=== PATIENT | male | born 1970 | race Caucasian/White ===

== ENCOUNTER 2017-10-12 12:57 | Emergency (ER) | payer SELFPAY ==
[~2017-10-12] VITALS: Ht 182.9 cm; Wt 85.6 kg
[~2017-10-12 12:57] MED LIST: CHLO.12%30 SSP; GABA300C3 PO; NAPR-576 PO; PAXI20TA26 PO; PENI250T59 PO; RISP.25 PO
[2017-10-12 13:03] VITALS: BP 157/85; PULSE 83; RESP 16; TEMP 97.9; O2SAT 96
[2017-10-12] MEDS ORDERED: LORA-650 PO (13:18)
--- NOTE | 2017-10-12 13:25 | PD ---
HPI Chief Complaint: Oral / Dental Pain or Problem Time Seen by Provider: 13:07 Travel History International Travel<30 days: No Contact w/Intl Traveler<30days: No Traveled to known affect area: No History of Present Illness HPI 47-year-old male resents emergency Department with worsening right upper jaw pain and swelling over the past week. Patient has terrible dental health, and admits to being an alcoholic requesting help with detox. Patient states he's been to detox 5 times in the past. Patient is concerned as the swelling and pain is increasing in the right cheek, although he denies change in his vision, or increased pain with motion of the eye. He feels feverish. He has no local dentist. He has no known drug allergies PFSH Past Medical History Arthritis: No Blood Disorders: No Bipolar Disorder: Yes Anxiety: Yes Depression: Yes Cancer: No Cardiovascular Problems: Yes (STATES TAKES MED. FOR UNSPECIFIED "HEART PROBLEM ") Cerebrovascular Accident: No Diminished Hearing: No Endocrine: No GERD: Yes Genitourinary: No Headaches: Yes Immune Disorder: No Musculoskeletal: Yes Neurologic: Yes Psychiatric: Yes Immunizations Current: Yes Migraines: No Schizophrenia: Yes Seizures: Yes (FROM ALCOHOL WITHDRAW) Tetanus Vaccination: > 5 Years Influenza Vaccination: No Past Surgical History AICD: No Arteriovenous Shunt: No Insulin Pump: No Joint Replacement: No Pacemaker: No Other Surgery: No Social History Alcohol Use: Yes (PT is intoxicated, STATES DRINKS CASE OF BEER DAILY) Tobacco Use: Yes (2 PPD) Substance Use: No Allergies-Medications (Allergen,Severity, Reaction): Coded Allergies: No Known Allergies (Verified Adverse Reaction, Unknown, 10/12/17) Reported Meds & Prescriptions Reported Meds & Active Scripts Active Penicillin Vk (Penicillin V Potassium) 250 Mg Tab 500 Mg PO Q12HR 10 Days Review of Systems Except as stated in HPI: all other systems reviewed are Neg General / Constitutional: Positive: Fever, Chills (subjective) Eyes: No: Diploplia, Blurred Vision, Photophobia, Pain, Blind Spots, Visual changes, Blindness HENT: Positive: Dental Difficulties, Other (right cheek swelling.), No: Headaches, Vertigo, Lightheadedness, Sore Throat, Rhinitis, Rhinorrhea, Congestion, Nosebleed, Neck Stiffness, Neck Pain, Masses, Gingival Bleeding, Ear Discharge, Earache Cardiovascular: No: Chest Pain or Discomfort Respiratory: No: Shortness of Breath Gastrointestinal: No: Abdominal Pain Genitourinary: No: Dysuria Musculoskeletal: No: Pain Skin: No Rash Neurologic: No: Weakness Psychiatric: No: Depression Endocrine: No: Polydipsia Hematologic/Lymphatic: No: Easy Bruising Physical Exam Narrative GENERAL: Patient appears in mild to moderate distress. SKIN: Warm and dry. Normal color. Normal turgor. No erythema. HEAD: Atraumatic. Normocephalic. Patient has swelling to the right cheek and upper jaw consistent with dental abscess. EYES: Pupils equal and round. No scleral icterus. No injection or drainage. Ocular motions are full without increased pain. ENT: No nasal bleeding or discharge. Mucous membranes pink and moist. Patient has very poor dental health with multiple teeth broken at the gumline. He has only the right upper second premolar in place which causes tenderness with palpation. Pharynx is clear. Airway is patent. TMs are clear bilaterally. NECK: Trachea midline. Supple nontender without lymphadenopathy. CARDIOVASCULAR: Regular rate and rhythm. RESPIRATORY: No accessory muscle use. Clear to auscultation. Breath sounds equal bilaterally. GASTROINTESTINAL: Abdomen soft, non-tender, nondistended. Hepatic and splenic margins not palpable. MUSCULOSKELETAL: Extremities without clubbing, cyanosis, or edema. No obvious deformities. NEUROLOGICAL: Awake and alert. No obvious cranial nerve deficits. Motor grossly within normal limits. Five out of 5 muscle strength in the arms and legs. Normal speech. PSYCHIATRIC: Appropriate mood and affect; insight and judgment normal. Data Data Last Documented VS Vital Signs Date Time Temp Pulse Resp B/P (MAP) Pulse Ox O2 Delivery O2 Flow Rate FiO2 10/12/17 13:03 97.9 83 16 157/85 (109) 96 Orders Orders Clindamycin Inj (Cleocin Inj) (10/12/17 13:30) Ketorolac Inj (Toradol Inj) (10/12/17 13:30) [facility] Medical Decision Making Medical Screen Exam Complete: Yes Emergency Medical Condition: Yes Medical Record Reviewed: Yes Differential Diagnosis Right upper dental abscess. Dental Pain. EtOH dependence. Narrative Course Patient appears medically stable at this time. CT of the facial areas not felt warranted at this time. Patient is given 600 mg clindamycin IM as well as 60 mg Toradol IM. Patient will be continued on Cleocin 150 mg 2 tabs every 6 hours for 10 days. Patient is given Librium 25 mg one every 8 hours #20. Patient is referred to [facility] for detox. Patient take Tylenol and ibuprofen for pain as needed. Patient should follow with a dentist as soon as possible. The patient may return the emergency Department with worsening symptoms as needed. Diagnosis Primary Impression: Dental abscess Additional Impression: EtOH dependence Qualified Codes: F10.20 - Alcohol dependence, uncomplicated Referrals: [facility] Patient Instructions: Abuse of Alcohol (ED), Dental Abscess (ED), General Instructions Additional Instructions: CT of the facial areas not felt warranted at this time. Patient is given 600 mg clindamycin IM as well as 60 mg Toradol IM. Patient will be continued on Cleocin 150 mg 2 tabs every 6 hours for 10 days. Patient is given Librium 25 mg one every 8 hours #20. Patient is referred to [facility] for detox. Patient take Tylenol and ibuprofen for pain as needed. Patient should follow with a dentist as soon as possible. The patient may return the emergency Department with worsening symptoms as needed. Med/Other Pt SpecificInfo: Prescription(s) given Disposition: 01 DISCHARGE HOME Condition: Stable Jayjay Dupree Oct 12, 2017 13:25
[2017-10-12] MEDS ORDERED: CLIN150 PO (13:29)
[2017-10-12] MEDS ORDERED: CHLO25CA9 PO (13:29)
[2017-10-12] MEDS ORDERED: KETOROLAC TROMETHAMINE 60 MG/2 ML (IM) VIAL IM ONE (13:30)
[2017-10-12] MEDS ORDERED: CLINDAMYCIN PHOS 600 MG/4 ML VIAL IM ONE (13:30)
== END 2017-10-12 14:11 | disposition home or self-care (01) ==
LOC: PHEFT 12:57
DX: K04.7 Periapical abscess without sinus (principal); F17.200 Nicotine dependence, unspecified, uncomplicated; F10.20 Alcohol dependence, uncomplicated
CPT/HCPCS: 96372; 99284; J1885

== ENCOUNTER 2017-10-18 20:58 | Emergency (ER) | payer OTHER ==
[~2017-10-18 20:58] MED LIST changes: -CHLO.12%30 SSP; +CHLO25CA9 PO; +CLIN150 PO; -GABA300C3 PO; +LORA-650 PO; -NAPR-576 PO; -PAXI20TA26 PO; -PENI250T59 PO; -RISP.25 PO
[2017-10-18 21:09] VITALS: BP 137/75; PULSE 80; RESP 20; TEMP 98.7; O2SAT 96
--- NOTE | 2017-10-18 21:21 | PD ---
HPI Chief Complaint: Psychiatric Symptoms Time Seen by Provider: 21:16 Travel History International Travel<30 days: No Contact w/Intl Traveler<30days: No Traveled to known affect area: No History of Present Illness HPI This is a 47-year-old male who presents under [place] act initiated by the Police Department. The patient has a long-standing history of alcoholism. He has been binge drinking for the past 3 days. He has been drinking numerous beers every day. 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 He has tried rehabilitation several times in the past with no success. He denies any suicidal or homicidal ideation, illicit drug use. He has no other complaints at this time. PFSH Past Medical History Arthritis: No Blood Disorders: No Bipolar Disorder: Yes Anxiety: Yes Depression: Yes Cancer: No Cerebrovascular Accident: No Diminished Hearing: No Endocrine: No GERD: Yes Genitourinary: No Headaches: Yes Immune Disorder: No Musculoskeletal: Yes Neurologic: Yes Psychiatric: Yes Immunizations Current: Yes Migraines: No Schizophrenia: Yes Seizures: Yes (FROM ALCOHOL WITHDRAW) Tetanus Vaccination: Unknown Past Surgical History Surgical History: Unable to Obtain AICD: No Arteriovenous Shunt: No Insulin Pump: No Joint Replacement: No Pacemaker: No Other Surgery: No Social History Alcohol Use: Yes (PT is intoxicated, STATES DRINKS CASE OF BEER DAILY) Tobacco Use: Yes (2 PPD) Substance Use: No Allergies-Medications (Allergen,Severity, Reaction): Coded Allergies: No Known Allergies (Verified Adverse Reaction, Unknown, 10/12/17) Reported Meds & Prescriptions Reported Meds & Active Scripts Active Chlordiazepoxide HCl 25 Mg Capsule 1 Cap PO Q8HR Cleocin (Clindamycin HCl) 150 Mg Cap 300 Mg PO Q6H 10 Days Reported Allergy Relief (Loratadine) 10 Mg Tab Unknown Dose PO BID Review of Systems Except as stated in HPI: all other systems reviewed are Neg Physical Exam Narrative GENERAL: Well-developed well-nourished male in no acute distress SKIN: Warm and dry. HEAD: Atraumatic. Normocephalic. EYES: Pupils equal and round. No scleral icterus. No injection or drainage. ENT: No nasal bleeding or discharge. Mucous membranes pink and moist. NECK: Trachea midline. No JVD. CARDIOVASCULAR: Regular rate and rhythm. No murmur appreciated. RESPIRATORY: No accessory muscle use. Clear to auscultation. Breath sounds equal bilaterally. GASTROINTESTINAL: Abdomen soft, non-tender, nondistended. Hepatic and splenic margins not palpable. MUSCULOSKELETAL: No obvious deformities. No clubbing. No cyanosis. No edema. NEUROLOGICAL: Awake and alert. No obvious cranial nerve deficits. Motor grossly within normal limits. Slurred speech. PSYCHIATRIC: Appropriate mood and affect; insight and judgment normal. Data Data Last Documented VS Vital Signs Date Time Temp Pulse Resp B/P (MAP) Pulse Ox O2 Delivery O2 Flow Rate FiO2 10/18/17 21:09 98.7 80 20 137/75 (95) 96 MDM Medical Decision Making Medical Screen Exam Complete: Yes Emergency Medical Condition: Yes Medical Record Reviewed: Yes Differential Diagnosis Alcoholism, alcohol intoxication, substance induced mood disorder Narrative Course 47-year-old male presents under [facility] act for evaluation of alcohol intoxication. History of alcoholism. Discussed with the nurse in [facility] called [facility] however unfortunately they do not currently have any detoxification beds available. The patient will remain here until he is clinically sober or able to obtain a sober ride home and then he'll be discharged. Diagnosis Primary Impression: Acute alcohol intoxication [facility] Additional Instructions: Consider attending a detoxification center such as [facility]. Med/Other Pt SpecificInfo: No Change to Meds Disposition: 01 DISCHARGE HOME Condition: Stable Ge Chambers Oct 18, 2017 21:21
== END 2017-10-19 06:49 | disposition home or self-care (01) ==
LOC: NEPD 20:58
DX: F10.129 Alcohol abuse with intoxication, unspecified (principal); F31.9 Bipolar disorder, unspecified; F41.9 Anxiety disorder, unspecified; F20.9 Schizophrenia, unspecified; K21.9 Gastro-esophageal reflux disease without esophagitis; F17.200 Nicotine dependence, unspecified, uncomplicated; Z79.899 Other long term (current) drug therapy
CPT/HCPCS: 99283

== ENCOUNTER 2017-10-21 16:14 | Emergency (ER) | payer OTHER ==
[~2017-10-21] VITALS: Ht 185.4 cm; Wt 85.0 kg
[2017-10-21 16:39] VITALS: BP 123/76; PULSE 78; RESP 16; TEMP 97.8; O2SAT 95
[2017-10-21 17:17] VITALS: BP 121/74; PULSE 72; RESP 14; O2SAT 97
[2017-10-21 17:43] LABS: AUTOMATED NEUTROPHIL # 4.4 TH/MM3 (1.8-7.7); BASOPHIL # 0.1 TH/MM3 (0-0.2); BASOPHIL % 1.3 % (0.0-2.0); EOSINOPHIL # 0.3 TH/MM3 (0-0.4); EOSINOPHIL % 3.4 % (0.0-4.0); HEMATOCRIT 52.6 % (39.0-51.0); HEMOGLOBIN 18.3 GM/DL (13.0-17.0); LYMPH % 32.8 % (9.0-44.0); LYMPHOCYTE # 2.6 TH/MM3 (1.0-4.8); MEAN CELL VOLUME 99.1 FL (80.0-100.0); MEAN CORPUSCULAR HEMOGLOBIN 34.5 PG (27.0-34.0); MEAN CORPUSCULAR HGB CONC 34.8 % (32.0-36.0); MONO % 8.1 % (0.0-8.0); MONOCYTE # 0.7 TH/MM3 (0-0.9); NEUT % 54.4 % (16.0-70.0); PLATELET COUNT 151 TH/MM3 (150-450); RED BLOOD COUNT 5.31 MIL/MM3 (4.50-5.90); RED CELL DISTRIBUTION WIDTH 14.6 % (11.6-17.2)
--- NOTE | 2017-10-21 17:55 | PD ---
HPI Chief Complaint: Psychiatric Symptoms Time Seen by Provider: 16:58 Travel History International Travel<30 days: No Contact w/Intl Traveler<30days: No Traveled to known affect area: No History of Present Illness HPI 47yo M with PMH of alcohol abuse here under [place] Act for suicidal ideations. Pt admits to drinking a lot. Denies any fall, chest pain, sob, n/v, abdominal pain, focal weakness or numbness. Following commands. Mildly intoxicated. No signs of trauma. PFSH Past Medical History Arthritis: No Blood Disorders: No Bipolar Disorder: Yes Anxiety: Yes Depression: Yes Cancer: No Cerebrovascular Accident: No Diminished Hearing: No Endocrine: No GERD: Yes Genitourinary: No Headaches: Yes Immune Disorder: No Musculoskeletal: Yes Neurologic: Yes Psychiatric: Yes (ALCOHOLISM) Immunizations Current: Yes Migraines: No Schizophrenia: Yes Seizures: Yes (FROM ALCOHOL WITHDRAW) Past Surgical History Surgical History: No Previous Surgery AICD: No Arteriovenous Shunt: No Insulin Pump: No Joint Replacement: No Pacemaker: No Other Surgery: No Social History Alcohol Use: Yes (PT is intoxicated, STATES DRINKS CASE OF BEER DAILY) Tobacco Use: Yes (2 PPD) Substance Use: No Allergies-Medications (Allergen,Severity, Reaction): Coded Allergies: No Known Allergies (Verified Adverse Reaction, Unknown, 10/21/17) Reported Meds & Prescriptions Reported Meds & Active Scripts Active Chlordiazepoxide HCl 25 Mg Capsule 1 Cap PO Q8HR Cleocin (Clindamycin HCl) 150 Mg Cap 300 Mg PO Q6H 10 Days Reported Allergy Relief (Loratadine) 10 Mg Tab Unknown Dose PO BID Review of Systems Except as stated in HPI: all other systems reviewed are Neg Physical Exam Narrative GENERAL: 47yo M intoxicated. SKIN: Focused skin assessment warm/dry. HEAD: Atraumatic. Normocephalic. EYES: Pupils equal and round. No scleral icterus. No injection or drainage. ENT: No nasal bleeding or discharge. Mucous membranes pink and moist. NECK: Trachea midline. No JVD. CARDIOVASCULAR: Regular rate and rhythm. No murmur appreciated. RESPIRATORY: No accessory muscle use. Clear to auscultation. Breath sounds equal bilaterally. GASTROINTESTINAL: Abdomen soft, non-tender, nondistended. MUSCULOSKELETAL: No obvious deformities. No clubbing. No cyanosis. No edema. NEUROLOGICAL: Awake and alert. No obvious cranial nerve deficits. Motor grossly within normal limits. Normal speech. PSYCHIATRIC: Appropriate mood and affect; insight and judgment normal. Data Data Last Documented VS Vital Signs Date Time Temp Pulse Resp B/P (MAP) Pulse Ox O2 Delivery O2 Flow Rate FiO2 10/22/17 06:40 110 16 131/78 (95) 95 10/21/17 19:56 Room Air 10/21/17 16:39 97.8 Orders Orders Complete Blood Count With Diff (10/21/17 16:58) Comprehensive Metabolic Panel (10/21/17 16:58) Psych Screen (10/21/17 16:58) Drug Screen, Random Urine (10/21/17 16:58) Alcohol (Ethanol) (10/21/17 16:58) Salicylates (Aspirin) (10/21/17 16:58) Tylenol (Acetaminophen) (10/21/17 16:58) Thiamine Inj (Thiamine Inj) (10/21/17 19:45) Ed Discharge Order (10/21/17 20:44) Labs Laboratory Tests Test 10/21/17 17:10 10/21/17 17:35 10/21/17 19:00 White Blood Count 8.0 TH/MM3 Red Blood Count 5.31 MIL/MM3 Hemoglobin 18.3 GM/DL Hematocrit 52.6 % Mean Corpuscular Volume 99.1 FL Mean Corpuscular Hemoglobin 34.5 PG Mean Corpuscular Hemoglobin Concent 34.8 % Red Cell Distribution Width 14.6 % Platelet Count 151 TH/MM3 Mean Platelet Volume 9.0 FL Neutrophils (%) (Auto) 54.4 % Lymphocytes (%) (Auto) 32.8 % Monocytes (%) (Auto) 8.1 % Eosinophils (%) (Auto) 3.4 % Basophils (%) (Auto) 1.3 % Neutrophils # (Auto) 4.4 TH/MM3 Lymphocytes # (Auto) 2.6 TH/MM3 Monocytes # (Auto) 0.7 TH/MM3 Eosinophils # (Auto) 0.3 TH/MM3 Basophils # (Auto) 0.1 TH/MM3 CBC Comment AUTO DIFF Differential Comment AUTO DIFF CONFIRMED Salicylates Level 3.8 MG/DL Urine Opiates Screen NEG Urine Barbiturates Screen NEG Urine Amphetamines Screen NEG Urine Benzodiazepines Screen POS Urine Cocaine Screen NEG Urine Cannabinoids Screen NEG Blood Urea Nitrogen 3 MG/DL Creatinine 0.79 MG/DL Random Glucose 71 MG/DL Total Protein 8.4 GM/DL Albumin 3.2 GM/DL Calcium Level 8.9 MG/DL Alkaline Phosphatase 73 U/L Aspartate Amino Transf (AST/SGOT) 75 U/L Alanine Aminotransferase (ALT/SGPT) 82 U/L Total Bilirubin 0.6 MG/DL Sodium Level 132 MEQ/L Potassium Level 4.3 MEQ/L Chloride Level 99 MEQ/L Carbon Dioxide Level 24.1 MEQ/L Anion Gap 9 MEQ/L Estimat Glomerular Filtration Rate 104 ML/MIN Acetaminophen Level LESS THAN 2.0 MCG/ML Ethyl Alcohol Level 291 MG/DL MDM Medical Decision Making Medical Screen Exam Complete: Yes Emergency Medical Condition: Yes Differential Diagnosis Alcohol intoxication vs. depression Narrative Course 47yo M here under [place] Act for stating he wants to kill himself but admits to drinking daily. Labs still pending, sign out to next team to follow up. Diagnosis Primary Impression: Alcohol intoxication Qualified Codes: F10.920 - Alcohol use, unspecified with intoxication, uncomplicated Bev Parsons DO Oct 21, 2017 17:55
[2017-10-21 18:42] LABS: ALKALINE PHOSPHATASE 73 U/L (45-117); ALT (GPT) 82 U/L (12-78); TOTAL BILIRUBIN ADULT 0.6 MG/DL (0.2-1.0); TOTAL PROTEIN 8.4 GM/DL (6.4-8.2)
[2017-10-21] MEDS ORDERED: THIAMINE INJ 100 MG in SODIUM CHLORIDE 0.9% INJ 100 ML IV ONE (19:45)
[2017-10-21 19:56] VITALS: BP 107/63; PULSE 82; RESP 18; O2SAT 94
[2017-10-21 20:11] LABS: ALBUMIN 3.2 GM/DL (3.4-5.0); AST (GOT) 75 U/L (15-37); BICARBONATE 24.1 MEQ/L (21.0-32.0); BLOOD UREA NITROGEN 3 MG/DL (7-18); CALCIUM 8.9 MG/DL (8.5-10.1); CHLORIDE 99 MEQ/L (98-107); CREATININE 0.79 MG/DL (0.60-1.30); GLOMERULAR FILTRATION RATE 104 ML/MIN (>89); GLUCOSE,RANDOM 71 MG/DL (74-106); SODIUM (NA) 132 MEQ/L (136-145)
[2017-10-21 20:12] LABS: ACETAMINOPHEN LESS THAN 2.0 MCG/ML (10.0-30.0)
--- NOTE | 2017-10-21 20:50 | PD ---
Data Data Last Documented VS Vital Signs Date Time Temp Pulse Resp B/P (MAP) Pulse Ox O2 Delivery O2 Flow Rate FiO2 10/21/17 19:56 82 18 107/63 (78) 94 Room Air 10/21/17 16:39 97.8 Orders Orders Complete Blood Count With Diff (10/21/17 16:58) Comprehensive Metabolic Panel (10/21/17 16:58) Psych Screen (10/21/17 16:58) Drug Screen, Random Urine (10/21/17 16:58) Alcohol (Ethanol) (10/21/17 16:58) Salicylates (Aspirin) (10/21/17 16:58) Tylenol (Acetaminophen) (10/21/17 16:58) Thiamine Inj (Thiamine Inj) (10/21/17 19:45) Ed Discharge Order (10/21/17 20:44) Labs Laboratory Tests Test 10/21/17 17:10 10/21/17 17:35 10/21/17 19:00 White Blood Count 8.0 TH/MM3 Red Blood Count 5.31 MIL/MM3 Hemoglobin 18.3 GM/DL Hematocrit 52.6 % Mean Corpuscular Volume 99.1 FL Mean Corpuscular Hemoglobin 34.5 PG Mean Corpuscular Hemoglobin Concent 34.8 % Red Cell Distribution Width 14.6 % Platelet Count 151 TH/MM3 Mean Platelet Volume 9.0 FL Neutrophils (%) (Auto) 54.4 % Lymphocytes (%) (Auto) 32.8 % Monocytes (%) (Auto) 8.1 % Eosinophils (%) (Auto) 3.4 % Basophils (%) (Auto) 1.3 % Neutrophils # (Auto) 4.4 TH/MM3 Lymphocytes # (Auto) 2.6 TH/MM3 Monocytes # (Auto) 0.7 TH/MM3 Eosinophils # (Auto) 0.3 TH/MM3 Basophils # (Auto) 0.1 TH/MM3 CBC Comment AUTO DIFF Differential Comment AUTO DIFF CONFIRMED Salicylates Level 3.8 MG/DL Urine Opiates Screen NEG Urine Barbiturates Screen NEG Urine Amphetamines Screen NEG Urine Benzodiazepines Screen POS Urine Cocaine Screen NEG Urine Cannabinoids Screen NEG Blood Urea Nitrogen 3 MG/DL Creatinine 0.79 MG/DL Random Glucose 71 MG/DL Total Protein 8.4 GM/DL Albumin 3.2 GM/DL Calcium Level 8.9 MG/DL Alkaline Phosphatase 73 U/L Aspartate Amino Transf (AST/SGOT) 75 U/L Alanine Aminotransferase (ALT/SGPT) 82 U/L Total Bilirubin 0.6 MG/DL Sodium Level 132 MEQ/L Potassium Level 4.3 MEQ/L Chloride Level 99 MEQ/L Carbon Dioxide Level 24.1 MEQ/L Anion Gap 9 MEQ/L Estimat Glomerular Filtration Rate 104 ML/MIN Acetaminophen Level LESS THAN 2.0 MCG/ML Ethyl Alcohol Level 291 MG/DL [facility] Medical Record Reviewed: Yes Supervised Visit with NICOLE: No Narrative Course The patient arrives as a [place] act. He drank alcohol today. He reported to the police suicidal ideation out to me denies it. 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 He denies prior SA. CBC & BMP Diagram 10/21/17 17:10 10/21/17 19:00 Total Protein 8.4 H, Albumin 3.2 L, Calcium Level 8.9, Alkaline Phosphatase 73, Aspartate Amino Transf (AST/SGOT) 75 H, Alanine Aminotransferase (ALT/SGPT) 82 H , Total Bilirubin 0.6 ETOH 291 UTOX + for Benzos No prior SA. No access to firearms. + Social support network intact. Pt considered very low risk for self-harm. Pt's BA lifted by me. Diagnosis Primary Impression: Alcohol intoxication Qualified Codes: F10.920 - Alcohol use, unspecified with intoxication, uncomplicated Additional Impression: Passive suicidal ideations Referrals: [facility] 2 days Med/Other Pt SpecificInfo: No Change to Meds Disposition: 01 DISCHARGE HOME Condition: Stable Bran Siu MD Oct 21, 2017 20:50
[2017-10-22 06:40] VITALS: BP 131/78
== END 2017-10-22 06:39 | disposition home or self-care (01) ==
LOC: NEDAMB 16:14 → NEPE 10-22 06:39
DX: F10.129 Alcohol abuse with intoxication, unspecified (principal); F17.200 Nicotine dependence, unspecified, uncomplicated; F20.9 Schizophrenia, unspecified; F31.9 Bipolar disorder, unspecified; R45.851 Suicidal ideations; Y90.8 Blood alcohol level of 240 mg/100 ml or more; Z79.899 Other long term (current) drug therapy
CPT/HCPCS: 80053; 80307; 85025; 96365; 99284; J3411

== ENCOUNTER 2018-01-04 22:41 | Inpatient (IN) | payer OTHER ==
[~2018-01-04] VITALS: Ht 182.9 cm; Wt 75.0 kg
[2018-01-04 23:11] VITALS: BP 116/76; PULSE 77; RESP 15; TEMP 98; O2SAT 96
[2018-01-04] MEDS ORDERED: RANI150C PO (23:11)
[2018-01-04 23:39] LABS: BASOPHIL # 0.1 TH/MM3 (0-0.2); EOSINOPHIL # 0.2 TH/MM3 (0-0.4); EOSINOPHIL % 2.8 % (0.0-4.0); HEMATOCRIT 47.9 % (39.0-51.0); LYMPH % 44.2 % (9.0-44.0); LYMPHOCYTE # 3.3 TH/MM3 (1.0-4.8); MEAN CELL VOLUME 97.7 FL (80.0-100.0); MEAN CORPUSCULAR HEMOGLOBIN 34.8 PG (27.0-34.0); MEAN CORPUSCULAR HGB CONC 35.6 % (32.0-36.0); MEAN PLATELET VOLUME 8.5 FL (7.0-11.0); MONO % 11.1 % (0.0-8.0); MONOCYTE # 0.8 TH/MM3 (0-0.9); NEUT % 40.9 % (16.0-70.0); PLATELET COUNT 154 TH/MM3 (150-450); RED CELL DISTRIBUTION WIDTH 14.1 % (11.6-17.2); WHITE BLOOD COUNT 7.4 TH/MM3 (4.0-11.0)
[2018-01-04 23:47] LABS: BILIRUBIN, URINE NEG (NEG); BLOOD, URINE NEG (NEG); GLUCOSE,URINE NEG (NEG); KETONE, URINE NEG (NEG); NITRITE,URINE NEG (NEG); PH, URINE 5.5 (5.0-8.5); URINE COLOR LIGHT-YELLOW (YELLW/STRAW); URINE LEUKOCYTE ESTERASE NEG (NEG)
[2018-01-04 23:48] LABS: PROTHROMBIN TIME - PATIENT 10.3 SEC (9.8-11.6)
[2018-01-04 23:56] LABS: ALBUMIN 3.2 GM/DL (3.4-5.0); AST (GOT) 58 U/L (15-37); BICARBONATE 24.6 MEQ/L (21.0-32.0); BLOOD UREA NITROGEN 2 MG/DL (7-18); CALCIUM 8.7 MG/DL (8.5-10.1); CHLORIDE 101 MEQ/L (98-107); CREATININE 0.77 MG/DL (0.60-1.30); GLOMERULAR FILTRATION RATE 107 ML/MIN (>89); GLUCOSE,RANDOM 92 MG/DL (74-106); SODIUM (NA) 138 MEQ/L (136-145)
[2018-01-04 23:57] LABS: ALT (GPT) 66 U/L (12-78)
[2018-01-05] VITALS (10 sets, daily range): BP systolic 114–162; BP diastolic 60–82; PULSE 71–92; RESP 16–20; TEMP 97.6–98.8; O2SAT 90–98
[2018-01-05 00:02] LABS: ALKALINE PHOSPHATASE 75 U/L (45-117); TOTAL BILIRUBIN ADULT 0.3 MG/DL (0.2-1.0); TOTAL PROTEIN 7.6 GM/DL (6.4-8.2)
[2018-01-05] MEDS ORDERED: SODIUM CHLOR 0.9% 1000 ML INJ 1,000 ML IV ONE (00:30)
[2018-01-05] MEDS ORDERED: PANTOPRAZOLE SODIUM 40 MG VIAL IV PUSH ONE (00:30)
--- NOTE | 2018-01-05 00:46 | PD ---
HPI Chief Complaint: Alcohol/Drug Intoxication Time Seen by Provider: 00:17 Travel History International Travel<30 days: No Contact w/Intl Traveler<30days: No Traveled to known affect area: No History of Present Illness HPI 47-year-old male with history of alcoholism/alcohol abuse here complaining of vomiting and diarrhea that consists of bright red blood. Symptoms started today. He admits to drinking beer throughout the day today. He denies illicit drug use. He is complaining of some epigastric abdominal discomfort. No fevers or chills. He is not on any antiplatelets or anticoagulants. He denies inserting foreign bodies into his rectum. He denies rectal pain. PFSH Past Medical History Arthritis: No Blood Disorders: No Bipolar Disorder: Yes Anxiety: Yes Depression: Yes Cancer: No Cerebrovascular Accident: No Diminished Hearing: No Endocrine: No GERD: Yes Genitourinary: No Headaches: Yes Immune Disorder: No Musculoskeletal: Yes Neurologic: Yes Psychiatric: Yes (ALCOHOLISM) Immunizations Current: Yes Migraines: No Schizophrenia: Yes Seizures: Yes ?: Not Past Surgical History Surgical History: No Previous Surgery AICD: No Arteriovenous Shunt: No Insulin Pump: No Joint Replacement: No Pacemaker: No Other Surgery: No Social History Alcohol Use: Yes (PT is intoxicated, STATES DRINKS BEER DAILY) Tobacco Use: Yes (2 PPD) Substance Use: No Allergies-Medications (Allergen,Severity, Reaction): Coded Allergies: No Known Allergies (Verified Adverse Reaction, Unknown, 01/04/18) Reported Meds & Prescriptions Reported Meds & Active Scripts Active Reported Ranitidine (Ranitidine HCl) 150 Mg Cap 150 Mg PO DAILY Review of Systems Except as stated in HPI: all other systems reviewed are Neg Physical Exam Narrative GENERAL: Well-developed, well-nourished, comfortable, no apparent distress, disheveled SKIN: Focused skin assessment warm/dry. No pallor. HEAD: Atraumatic. Normocephalic. EYES: Pupils equal and round. No scleral icterus. No injection or drainage. ENT: Mucous membranes pink and moist. NECK: Trachea midline. No JVD. CARDIOVASCULAR: Regular rate and rhythm. No murmur appreciated. RESPIRATORY: No accessory muscle use. Clear to auscultation. Breath sounds equal bilaterally. GASTROINTESTINAL: Abdomen soft, nondistended. Mild diffuse tenderness without peritoneal signs. Normal bowel sounds. RECTUM: Bright red blood per rectum. No masses, no fissures, no hemorrhoids. MUSCULOSKELETAL: No obvious deformities. No clubbing. No cyanosis. No edema. NEUROLOGICAL: Awake and alert. No obvious cranial nerve deficits. Motor grossly within normal limits. Normal speech. PSYCHIATRIC: Appropriate mood and affect; insight and judgment normal. Data Data Last Documented VS Vital Signs Date Time Temp Pulse Resp B/P (MAP) Pulse Ox O2 Delivery O2 Flow Rate FiO2 01/05/18 02:22 76 16 114/60 (78) 98 Room Air 01/04/18 23:11 98.0 Orders Orders Complete Blood Count With Diff (01/04/18 23:14) Comprehensive Metabolic Panel (01/04/18 23:14) Urinalysis - C+S If Indicated (01/04/18 23:14) Psych Screen (01/04/18 23:14) Drug Screen, Random Urine (01/04/18 23:14) Alcohol (Ethanol) (01/04/18 23:14) Prothrombin Time / Inr (Pt) (01/04/18 23:14) Act Partial Throm Time (Ptt) (01/04/18 23:14) Ecg Monitoring (01/04/18 23:14) Oximetry (01/04/18 23:14) Oxygen Administration (01/04/18 23:14) Iv Access Insert/Monitor (01/04/18 23:14) Type And Screen (01/04/18 23:14) Ct Abd/Pel W Iv Contrast(Rout) (01/05/18 00:20) Sodium Chlor 0.9% 1000 Ml Inj (Ns 1000 M (01/05/18 00:30) Pantoprazole Inj (Protonix Inj) (01/05/18 00:30) Iohexol 350 Inj (Omnipaque 350 Inj) (01/05/18 01:49) Labs Laboratory Tests Test 01/04/18 22:54 01/04/18 23:23 Urine Color LIGHT-YELLOW Urine Turbidity CLEAR Urine pH 5.5 Urine Specific [place] 1.002 Urine Protein NEG mg/dL Urine Glucose (UA) NEG mg/dL Urine Ketones NEG mg/dL Urine Occult Blood NEG Urine Nitrite NEG Urine Bilirubin NEG Urine Urobilinogen LESS THAN 2.0 MG/DL Urine Leukocyte Esterase NEG Microscopic Urinalysis Comment CULT NOT INDICATED Urine Opiates Screen NEG Urine Barbiturates Screen NEG Urine Amphetamines Screen NEG Urine Benzodiazepines Screen POS Urine Cocaine Screen NEG Urine Cannabinoids Screen NEG White Blood Count 7.4 TH/MM3 Red Blood Count 4.90 MIL/MM3 Hemoglobin 17.0 GM/DL Hematocrit 47.9 % Mean Corpuscular Volume 97.7 FL Mean Corpuscular Hemoglobin 34.8 PG Mean Corpuscular Hemoglobin Concent 35.6 % Red Cell Distribution Width 14.1 % Platelet Count 154 TH/MM3 Mean Platelet Volume 8.5 FL Neutrophils (%) (Auto) 40.9 % Lymphocytes (%) (Auto) 44.2 % Monocytes (%) (Auto) 11.1 % Eosinophils (%) (Auto) 2.8 % Basophils (%) (Auto) 1.0 % Neutrophils # (Auto) 3.0 TH/MM3 Lymphocytes # (Auto) 3.3 TH/MM3 Monocytes # (Auto) 0.8 TH/MM3 Eosinophils # (Auto) 0.2 TH/MM3 Basophils # (Auto) 0.1 TH/MM3 CBC Comment DIFF FINAL Differential Comment Prothrombin Time 10.3 SEC Prothromb Time International Ratio 1.0 RATIO Activated Partial Thromboplast Time 28.4 SEC Blood Urea Nitrogen 2 MG/DL Creatinine 0.77 MG/DL Random Glucose 92 MG/DL Total Protein 7.6 GM/DL Albumin 3.2 GM/DL Calcium Level 8.7 MG/DL Alkaline Phosphatase 75 U/L Aspartate Amino Transf (AST/SGOT) 58 U/L Alanine Aminotransferase (ALT/SGPT) 66 U/L Total Bilirubin 0.3 MG/DL Sodium Level 138 MEQ/L Potassium Level 3.6 MEQ/L Chloride Level 101 MEQ/L Carbon Dioxide Level 24.6 MEQ/L Anion Gap 12 MEQ/L Estimat Glomerular Filtration Rate 107 ML/MIN Ethyl Alcohol Level 298 MG/DL [facility] Medical Decision Making Medical Screen Exam Complete: Yes Emergency Medical Condition: Yes Differential Diagnosis GI bleed, varices, anemia, gastritis, peptic ulcer disease, hepatobiliary disease, pancreatitis, alcohol intoxication Narrative Course Initial vital signs show heart rate 77, blood pressure 116/76, pulse ox 96% on room air, oral temp of 98F. CBC: WBC 7.4, hemoglobin 17, hematocrit 47.9, platelets 159. CMP is essentially unremarkable. Alcohol level is 298. CT abdomen pelvis: CONCLUSION: 1. Steatosis of the liver. 2. Bilateral nonobstructing lower pole renal stones. 3. Sigmoid diverticula without radiographic evidence of diverticulitis. Patient has bright red blood per rectum on exam. There are no masses, fissures , or hemorrhoids. This could be diverticular bleed. Variceal bleeding is also a possibility as the patient reportedly had hematemesis today. Although his H& H is normal, his heart rate has increased from 70s to 90s. He will be admitted for further treatment and evaluation. Case discussed with hospitalist Dr. Bennett who will admit the patient to his service. Diagnosis Primary Impression: Rectal bleeding Additional Impression: Alcohol intoxication Qualified Codes: F10.920 - Alcohol use, unspecified with intoxication, uncomplicated Admitting Information Admitting Physician Requests: Observation Michael Max MD Jan 05, 2018 00:46
[2018-01-05] MEDS ORDERED: IOHEXOL 350 MG/ML 10 ML VIAL (for RAD DIAG) IVCONTRAST ONE (01:49)
--- NOTE | 2018-01-05 02:24 | RADRPT ---
EXAM DATE/TIME: 01/05/2018 01:46 [place] COMPARISON: No previous studies available for comparison. INDICATIONS : Hematemesis and blood in stool. IV CONTRAST: 100 cc Omnipaque 350 (iohexol) IV ORAL CONTRAST: No oral contrast ingested. RADIATION DOSE: 10.93 CTDIvol (mGy) MEDICAL HISTORY : Gastroesophageal reflux disease. SURGICAL HISTORY : None. ENCOUNTER: Initial ACUITY: 3 days PAIN SCALE: 5/10 LOCATION: abdomen TECHNIQUE: Volumetric scanning of the abdomen and pelvis was performed. Using automated exposure control and ad justment of the mA and/or kV according to patient size, radiation dose was kept as low as reasonably achievable to obtain optimal diagnostic quality images. DICOM format image data is available electro nically for review and comparison. FINDINGS: LOWER LUNGS: The visualized lower lungs are clear. LIVER: Diffuse decreased attenuation in the liver characteristic of diffuse fatty change. No focal lesion.. There is no dilation of the biliary tree. No calcified gallstones. SPLEEN: Normal size without lesion. PANCREAS: Within normal limits. KIDNEYS: Nonobstructing 3 mm calcified stone lower pole right kidney. Calcified stone lower pole left kidney measures 9 mm. No evidence of hydronephrosis on either side. Several renal cysts on the left side m easuring up to 1.4 cm. No evidence of hydronephrosis or mass. ADRENAL GLANDS: Within normal limits. VASCULAR: There is no aortic aneurysm. BOWEL/MESENTERY: No dilated loops of small or large bowel. Gas is seen in the lumen of the normal-sized appendix whic h extends lateral to the right colon. Numerous diverticula in the sigmoid colon without radiographic evidence of diverticulitis. ABDOMINAL WALL: Within normal limits. RETROPERITONEUM: There is no lymphadenopathy. BLADDER: No wall thickening or mass. REPRODUCTIVE: Within normal limits. INGUINAL: There is no lymphadenopathy or hernia. MUSCULOSKELETAL: Within normal limits for patient age. CONCLUSION: 1. Steatosis of the liver. 2. Bilateral nonobstructing lower pole renal stones. 3. Sigmoid diverticula without radiographic evidence of diverticulitis. Jorge Argueta MD on January 05, 2018 at 2:18 Board Certified Radiologist. This report was verified electronically.
[2018-01-05] MEDS ORDERED: FLUMAZENIL 0.5 MG/5 ML VIAL IV PUSH PRN (03:00)
[2018-01-05] MEDS ORDERED: ONDANSETRON HCL 4 MG/2 ML VIAL IV PUSH PRN (03:00)
[2018-01-05] MEDS ORDERED: LORazepam 1 MG TAB PO PRN (03:00)
[2018-01-05] MEDS ORDERED: LORazepam 2 MG/ML VIAL IV PUSH PRN ×3 (03:00)
[2018-01-05] MEDS ORDERED: LORazepam 2 MG TAB PO PRN (03:00)
[2018-01-05] MEDS ORDERED: SODIUM CHLORIDE 0.9% FLUSH 10 ML FLUSH IV FLUSH PRN (03:00)
[2018-01-05] MEDS: SODIUM CHLOR 0.9% 1000 ML INJ 1,000 ML IV SCH ×2 (03:25→18:59)
[2018-01-05 03:28] LABS: HEMATOCRIT 45.4 % (39.0-51.0); HEMOGLOBIN 15.8 GM/DL (13.0-17.0)
--- NOTE | 2018-01-05 08:54 | PD.CONS ---
HPI History of Present Illness This is a 47 year old male with hx etoh abuse who presented to ER for n/v with hematemesis, bloody diarrhea. Onset 2 d ago and has worsened. He denies prior episodes of this. THinks he has lost weight b/c his pants fit looser but does not know how much. Admits frequent fevers lately. Denies sick contacts. Denies abd pain. Never had EGD or colonoscopy. Does not take blood thinners. Occasional ibuprofen. (Kathy Restrepo) PFSH Past Medical History alcoholic GERD bipolar & schizophrenia mentioned in EMR but pt denies this Past Surgical History denies (Kathy Restrepo) Coded Allergies: No Known Allergies (Verified Adverse Reaction, Unknown, 01/04/18) Family History adopted Social History drinks 40 beers daily 2 ppd denies illicit drug use (Kathy Restrepo) Review of Systems Constitutional: COMPLAINS OF: Fever, Weight loss Endocrine: DENIES: Polydipsia Eyes: DENIES: Blurred vision Ears, nose, mouth, throat: DENIES: Hearing loss Respiratory: DENIES: Cough Cardiovascular: DENIES: Chest pain Gastrointestinal: COMPLAINS OF: Bloody stools, Diarrhea, Nausea, Vomiting, Hematemesis, DENIES: Abdominal pain Genitourinary: DENIES: Hematuria Musculoskeletal: DENIES: Muscle aches Hematologic/lymphatic: DENIES: Bruising Immunologic/allergic: DENIES: Eczema Neurologic: DENIES: Headache (Kathy Restrepo) GI Exam Vitals I&O Vital Signs Date Time Temp Pulse Resp B/P (MAP) Pulse Ox O2 Delivery O2 Flow Rate FiO2 01/05/18 08:28 98.0 92 20 135/82 (99) 92 01/05/18 05:46 84 01/05/18 04:08 97.6 82 16 121/77 (92) 93 01/05/18 03:27 01/05/18 02:22 76 16 114/60 (78) 98 Room Air 01/04/18 23:11 98.0 77 15 116/76 (89) 96 Room Air 01/04/18 23:06 97 Room Air I/O 01/04/18 01/04/18 01/04/18 01/05/18 01/05/18 01/05/18 07:00 15:00 23:00 07:00 15:00 23:00 Intake Total 2000 ml Balance 2000 ml Intake Oral 0 ml IV Total 2000 ml # Voids 2 # Bowel Movements 0 Imaging Last Impressions Abdomen/Pelvis CT 01/05/18 0020 Signed Impressions: Service Date/Time: Friday, January 05, 2018 01:46 - CONCLUSION: 1. Steatosis of the liver. 2. Bilateral nonobstructing lower pole renal stones. 3. Sigmoid diverticula without radiographic evidence of diverticulitis. Jorge Argueta MD Laboratory Test 01/04/18 22:54 01/04/18 23:23 01/05/18 03:13 Urine Color LIGHT-YELLOW Urine Turbidity CLEAR Urine pH 5.5 Urine Specific [place] 1.002 Urine Protein NEG mg/dL Urine Glucose (UA) NEG mg/dL Urine Ketones NEG mg/dL Urine Occult Blood NEG Urine Nitrite NEG Urine Bilirubin NEG Urine Urobilinogen LESS THAN 2.0 MG/DL Urine Leukocyte Esterase NEG Microscopic Urinalysis Comment CULT NOT INDICATED Urine Opiates Screen NEG Urine Barbiturates Screen NEG Urine Amphetamines Screen NEG Urine Benzodiazepines Screen POS Urine Cocaine Screen NEG Urine Cannabinoids Screen NEG White Blood Count 7.4 TH/MM3 Red Blood Count 4.90 MIL/MM3 Hemoglobin 17.0 GM/DL 15.8 GM/DL Hematocrit 47.9 % 45.4 % Mean Corpuscular Volume 97.7 FL Mean Corpuscular Hemoglobin 34.8 PG Mean Corpuscular Hemoglobin Concent 35.6 % Red Cell Distribution Width 14.1 % Platelet Count 154 TH/MM3 Mean Platelet Volume 8.5 FL Neutrophils (%) (Auto) 40.9 % Lymphocytes (%) (Auto) 44.2 % Monocytes (%) (Auto) 11.1 % Eosinophils (%) (Auto) 2.8 % Basophils (%) (Auto) 1.0 % Neutrophils # (Auto) 3.0 TH/MM3 Lymphocytes # (Auto) 3.3 TH/MM3 Monocytes # (Auto) 0.8 TH/MM3 Eosinophils # (Auto) 0.2 TH/MM3 Basophils # (Auto) 0.1 TH/MM3 CBC Comment DIFF FINAL Differential Comment Prothrombin Time 10.3 SEC Prothromb Time International Ratio 1.0 RATIO Activated Partial Thromboplast Time 28.4 SEC Blood Urea Nitrogen 2 MG/DL Creatinine 0.77 MG/DL Random Glucose 92 MG/DL Total Protein 7.6 GM/DL Albumin 3.2 GM/DL Calcium Level 8.7 MG/DL Alkaline Phosphatase 75 U/L Aspartate Amino Transf (AST/SGOT) 58 U/L Alanine Aminotransferase (ALT/SGPT) 66 U/L Total Bilirubin 0.3 MG/DL Sodium Level 138 MEQ/L Potassium Level 3.6 MEQ/L Chloride Level 101 MEQ/L Carbon Dioxide Level 24.6 MEQ/L Anion Gap 12 MEQ/L Estimat Glomerular Filtration Rate 107 ML/MIN Ethyl Alcohol Level 298 MG/DL Physical Examination HEENT: PERRL; normocephalic; atraumatic; no jaundice. CHEST: CTA CARDIAC: RRR ABDOMEN: Soft, nondistended, nontender; no hepatosplenomegaly; bowel sounds are present in all four quadrants. EXTREMITIES: No clubbing, cyanosis, or edema. SKIN: Normal; no rash; no jaundice. [employer] WHE[employer]ER: mildly lethargic but answers questions appropriately (Kathy Restrepo) Assessment and Plan Plan ASSESSMENT - hematemesis, hematochezia - onset 2 days ago vomiting blood and bloody diarrhea. denies prior episodes never had EGD or Colonoscopy. HH WNL. hx significant etoh consumption 40 x beers daily had frankly bloody BM this morning in ER on floor PLAN - EGD today - obtain consent - NPO - PPI - monitor labs - further recs to follow pt seen by myself and Dr Medina and this note is on his behalf (Kathy Restrepo) Plan Patient was seen and examined, agree with above note, patient is a heavy drinker up to 40 beers a day, with hematemesis, we will plan on upper endoscopy today, monitor H&H, watch for withdrawal since he is very high risk for that (Nila Medina MD) Kathy Restrepo Jan 05, 2018 08:54 Nila Medina MD Jan 05, 2018 13:26
[2018-01-05] MEDS: PANTOPRAZOLE SODIUM 40 MG VIAL IV PUSH SCH ×2 (09:57→22:44)
[2018-01-05] MEDS: SODIUM CHLORIDE 0.9% FLUSH 10 ML FLUSH IV FLUSH SCH ×2 (09:57→22:44)
[2018-01-05] MEDS ORDERED: LIDOCAINE HCL 1% PF 5 ML SYRINGE OTHER ONE (12:00)
[2018-01-05] MEDS ORDERED: PROPOFOL 200 MG/20 ML AMP IV ONE (12:00)
[2018-01-05] MEDS ORDERED: MIDAZOLAM HCL 2 MG/2 ML VIAL ONE (13:07)
[2018-01-05] MEDS ORDERED: POVIDONE IODINE 5% (ANTISEPSIS KIT) 4 APPLICATIONS EACH NARE PRN (13:15)
[2018-01-05] MEDS ORDERED: CHLORHEXIDINE GLUCONATE 2 % 1 PACK (2 CLOTHS) TOPICAL PRN (13:15)
[2018-01-05] MEDS ORDERED: LACTATED RINGER'S 1000 ML IV PRN (13:15)
[2018-01-05] MEDS ORDERED: SODIUM CHLORID 0.9% 500 ML IV PRN (13:15)
[2018-01-05] MEDS ORDERED: METOPROLOL TARTRATE 25 MG TAB PO PRN (13:15)
--- NOTE | 2018-01-05 13:30 | PD.PROCEDR ---
GI Procedure PROCEDURE PERFORMED Upper endoscopy with biopsy INDICATION FOR PROCEDURE Hematemesis Severe alcohol abuse PROCEDURE: The procedure, risks and benefits were discussed with Mr. Israel and informed consent was obtained. Anesthesia sedated him with Diprivan. He was placed in the left lateral decubitus position. EGD: The Pentax videoscope was introduced through the oropharynx and advanced to the second portion of the duodenum under direct visualization. Retroflexion was performed in the stomach. Biopsy from the antrum and from the distal esophagus ESTIMATED BLOOD LOSS: None SPECIMENS REMOVED: Distal esophagus, antrum COMPLICATIONS: None IMPRESSION: Severe grade D esophagitis with short Tejada's biopsied from the distal esophagus Severe gastritis with gastropathy most likely related to alcohol abuse biopsy from the antrum Severe duodenitis with ulcer in the bulb no active bleeding PLAN: No NSAIDs Protonix 40 mg daily Follow-up biopsy Watch for DT as the patient is very high risk for that Alcohol cessation and tobacco cessation Nila Medina MD Jan 05, 2018 13:30
[2018-01-05] MEDS: LORazepam 2 MG/ML VIAL IV PUSH PRN (14:28)
--- NOTE | 2018-01-05 14:49 | HHI.HP ---
HPI Service [facility] Primary Care Physician No Primary Care Physician Admission Diagnosis rectal bleeding, alcohol intoxication Diagnoses: Chief Complaint: Rectal bleeding, alcohol intoxication with history of seizure withdrawals Travel History International Travel<30 Days: No Contact w/Intl Traveler <30 Da: No Traveled to Known Affected Are: No History of Present Illness Patient is a 47-year-old male with history of EtOH abuse, seizure withdrawal from alcohol who came into the hospital for complaints of vomiting, bloody diarrhea. Patient just came back from EGD. Patient was asked with they have said states that he does not remember, "they told me big words I didn't remember." Patient reports that he had bloody BM this morning at the hospital states that he may do best. Also admits to drinking alcohol about 40 beers a day, smokes 2 packs of cigarettes per day. Patient states that he attempts to be sober and he was sober for 16 months until last week that he started drinking 40 beers per day. Reports seizure withdrawal from alcohol states it has been a while back that he had seizures does not remember if it reoccurred within the year. Otherwise patient denies chest pain, palpitations, headaches, dizziness. Reports tremors and increasing tremors and anxiety. Denies any fevers, chills, nausea, vomiting, diarrhea with this exam. Denies any dysuria Review of Systems Except as stated in HPI: all other systems reviewed are Neg Past Family Social History Past Medical History alcoholic GERD bipolar & schizophrenia mentioned in EMR but pt denies this Past Surgical History denies Reported Medications None Allergies: Coded Allergies: No Known Allergies (Verified Adverse Reaction, Unknown, 01/04/18) Active Ordered Medications Current Medications Medications (Trade) Dose Ordered Sig/[place] Route Start Time Stop Time Status Last Admin (NS Flush) 2 ml UNSCH PRN IV FLUSH 01/05/18 03:00 (NS Flush) 2 ml BID IV FLUSH 01/05/18 09:00 01/05/18 09:57 Sodium Chloride 1,000 ml @ 100 mls/hr Q10H IV 01/05/18 02:51 01/05/18 22:50 01/05/18 03:25 (Protonix Inj) 40 mg BID IV PUSH 01/05/18 09:00 01/05/18 09:57 (Zofran Inj) 4 mg Q6H PRN IV PUSH 01/05/18 03:00 (Romazicon Inj) 0.2 mg Q1M PRN IV PUSH 01/05/18 03:00 (Ativan) 1 mg Q4H PRN PO 01/05/18 03:00 (Ativan Inj) 1 mg Q4H PRN IV PUSH 01/05/18 03:00 01/05/18 14:28 (Ativan) 2 mg Q2H PRN PO 01/05/18 03:00 (Ativan Inj) 2 mg Q2H PRN IV PUSH 01/05/18 03:00 (Ativan Inj) 2 mg Q1H PRN IV PUSH 01/05/18 03:00 (Ativan Inj) 2 mg Q15M PRN IV PUSH 01/05/18 03:00 (Pneumovax-23 Inj) 25 mcg ONCE ONCE IM 01/06/18 10:00 01/06/18 10:01 (Flu (Quadrivalent) Vaccine Inj) 0.5 ml ONCE ONCE IM 01/06/18 10:00 01/06/18 10:01 Lactated Ringer's 1,000 ml @ 30 mls/hr Q24H PRN IV 01/05/18 13:15 01/08/18 13:14 Sodium Chloride 500 ml @ 30 mls/hr [id number] PRN IV 01/05/18 13:15 01/08/18 13:14 (Lopressor) 25 mg [employer] PRN PO 01/05/18 13:15 01/08/18 13:14 (Betadine 5% Antisepsis Kit) 1 applic [employer] PRN EACH NARE 01/05/18 13:15 01/08/18 13:14 (Chlorhexidine 2% Cloth) 3 pack [employer] PRN TOPICAL 01/05/18 13:15 01/08/18 13:14 Family History adopted Social History drinks 40 beers daily 2 ppd denies illicit drug use Physical Exam Vital Signs Vital Signs Date Time Temp Pulse Resp B/P (MAP) Pulse Ox O2 Delivery O2 Flow Rate FiO2 01/05/18 14:00 98.6 86 20 133/68 (89) 92 01/05/18 13:40 97.2 81 18 121/76 (91) 96 01/05/18 08:28 98.0 92 20 135/82 (99) 92 01/05/18 05:46 84 01/05/18 04:08 97.6 82 16 121/77 (92) 93 01/05/18 03:27 01/05/18 02:22 76 16 114/60 (78) 98 Room Air 01/04/18 23:11 98.0 77 15 116/76 (89) 96 Room Air 01/04/18 23:06 97 Room Air Physical Exam GENERAL: This is a dishevelled, , well-developed patient, in no apparent distress. SKIN: Warm and dry. Overt sun exposure of skin, redness/leathery HEAD: Normocephalic. EYES: Pupils equal round and reactive. Extraocular motions intact. No scleral icterus. No injection or drainage. ENT: Nose without bleeding. Throat without erythema. Uvula midline. Airway patent. NECK: Trachea midline. CARDIOVASCULAR: Regular rate and rhythm without murmurs, gallops, or rubs. RESPIRATORY: Breath sounds equal bilaterally. No wheezes, rales, or rhonchi. GASTROINTESTINAL: Abdomen soft, non-tender, nondistended. Bowel sounds active 4. MUSCULOSKELETAL: Extremities without clubbing, cyanosis, or edema. Tremolos. NEUROLOGICAL: Awake and alert. Motor and sensory grossly within normal limits. Normal speech. Laboratory Laboratory Tests Test 01/04/18 22:54 01/04/18 23:23 01/05/18 03:13 Urine Color LIGHT-YELLOW Urine Turbidity CLEAR Urine pH 5.5 Urine Specific [place] 1.002 Urine Protein NEG Urine Glucose (UA) NEG Urine Ketones NEG Urine Occult Blood NEG Urine Nitrite NEG Urine Bilirubin NEG Urine Urobilinogen LESS THAN 2.0 Urine Leukocyte Esterase NEG Microscopic Urinalysis Comment CULT NOT INDICATED Urine Opiates Screen NEG Urine Barbiturates Screen NEG Urine Amphetamines Screen NEG Urine Benzodiazepines Screen POS Urine Cocaine Screen NEG Urine Cannabinoids Screen NEG White Blood Count 7.4 Red Blood Count 4.90 Hemoglobin 17.0 15.8 Hematocrit 47.9 45.4 Mean Corpuscular Volume 97.7 Mean Corpuscular Hemoglobin 34.8 Mean Corpuscular Hemoglobin Concent 35.6 Red Cell Distribution Width 14.1 Platelet Count 154 Mean Platelet Volume 8.5 Neutrophils (%) (Auto) 40.9 Lymphocytes (%) (Auto) 44.2 Monocytes (%) (Auto) 11.1 Eosinophils (%) (Auto) 2.8 Basophils (%) (Auto) 1.0 Neutrophils # (Auto) 3.0 Lymphocytes # (Auto) 3.3 Monocytes # (Auto) 0.8 Eosinophils # (Auto) 0.2 Basophils # (Auto) 0.1 CBC Comment DIFF FINAL Differential Comment Prothrombin Time 10.3 Prothromb Time International Ratio 1.0 Activated Partial Thromboplast Time 28.4 Blood Urea Nitrogen 2 Creatinine 0.77 Random Glucose 92 Total Protein 7.6 Albumin 3.2 Calcium Level 8.7 Alkaline Phosphatase 75 Aspartate Amino Transf (AST/SGOT) 58 Alanine Aminotransferase (ALT/SGPT) 66 Total Bilirubin 0.3 Sodium Level 138 Potassium Level 3.6 Chloride Level 101 Carbon Dioxide Level 24.6 Anion Gap 12 Estimat Glomerular Filtration Rate 107 Ethyl Alcohol Level 298 Result Diagram: 01/05/18 0313 01/04/18 2323 Imaging Last Impressions Abdomen/Pelvis CT 01/05/18 0020 Signed Impressions: Service Date/Time: Friday, January 05, 2018 01:46 - CONCLUSION: 1. Steatosis of the liver. 2. Bilateral nonobstructing lower pole renal stones. 3. Sigmoid diverticula without radiographic evidence of diverticulitis. MD Rhys Gonzalez VTE Risk Assessment [place] VTE Risk Assessment: No/Low Risk (score <= 1) VTE Pharm Contraindication: High risk for bleeding Caprini Risk Assessment Model Point Value = 1 Point Value = 2 Point Value = 3 Point Value = 5 Age 41-60 Minor surgery BMI > 25 kg/m2 Swollen legs Varicose veins or History of unexplained or recurrent spontaneous Oral contraceptives or hormone replacement Sepsis (< 1 month) Serious lung disease, including pneumonia (< 1 month) Abnormal pulmonary function Acute myocardial infarction Congestive heart failure (< 1 month) History of inflammatory bowel disease Medical patient at bed rest Age 61-74 Arthroscopic surgery Major open surgery (> 45 min) Laparoscopic surgery (> 45 min) Malignancy Confined to bed (> 72 hours) Immobilizing plaster cast Central venous access Age >= 75 History of VTE Family history of VTE Factor V Leiden Prothrombin [id number] Lupus anticoagulant Anticardiolipin antibodies Elevated serum homocysteine Heparin-induced thrombocytopenia Other congenital or acquired thrombophilia Stroke (< 1 month) Elective arthroplasty Hip, pelvis, or leg fracture Acute spinal cord injury (< 1 month) Prophylaxis Regimen Total Risk Factor Score Risk Level Prophylaxis Regimen 0-1 Low Early ambulation 2 Moderate Order ONE of the following: *Sequential Compression Device (SCD) *Heparin 5000 units SQ BID 3-4 Higher Order ONE of the following medications: *Heparin 5000 units SQ TID *Enoxaparin/Lovenox 40 mg SQ daily (WT < 150 kg, CrCl > 30 mL/min) *Enoxaparin/Lovenox 30 mg SQ daily (WT < 150 kg, CrCl > 10-29 mL/min) *Enoxaparin/Lovenox 30 mg SQ BID (WT < 150 kg, CrCl > 30 mL/min) AND/OR *Sequential Compression Device (SCD) 5 or more Highest Order ONE of the following medications: *Heparin 5000 units SQ TID (Preferred with Epidurals) *Enoxaparin/Lovenox 40 mg SQ daily (WT < 150 kg, CrCl > 30 mL/min) *Enoxaparin/Lovenox 30 mg SQ daily (WT < 150 kg, CrCl > 10-29 mL/min) *Enoxaparin/Lovenox 30 mg SQ BID (WT < 150 kg, CrCl > 30 mL/min) AND *Sequential Compression Device (SCD) Assessment and Plan Problem List: (1) ETOH abuse ICD Code: F10.10 - Alcohol abuse, uncomplicated (2) Tobacco abuse ICD Code: Z72.0 - Tobacco use Status: Chronic (3) Rectal bleeding ICD Code: K62.5 - Hemorrhage of anus and rectum Status: Acute (4) Alcohol intoxication ICD Code: F10.929 - Alcohol use, unspecified with intoxication, unspecified Status: Acute Assessment and Plan Patient is a 47-year-old male with history of EtOH abuse, seizure withdrawal from alcohol who came into the hospital for complaints of vomiting, bloody diarrhea. GIB, acute Alcohol Related -GI consult. -EGD done. Severe grade D esophagitis with short Tejada's biopsied from distal esophagus. Severe gastritis with gastropathy most likely related to alcohol abuse biopsy from the antrum. Severe duodenitis with ulceration above the active bleeding. Recommends no NSAIDs, Protonix daily, follow-up biopsy. -Monitor for signs and symptoms of bleeding. -Discussed results with patient. EtOH abuse Alcohol-related seizure withdrawal -Patient was counseled. Discussed GI bleed related to alcohol use. Reports he has been sober for 16 months and has been good with a support group meetings however last week he started to drink about 40 beers per day. - CIWA protocol. CIWA 8 -Ativan IV provided. Notable tremors. History of alcohol seizure withdrawal -Librium -Monitor for delirium tremens. Tobacco abuse -Counseled. -Nicotine patch DVT prop SCDs. Chemoprophylaxis contraindicated for down Code Status Full code Discussed Condition With Patient, nursing Physician Certification 2 Midnight Certification Type: Admission for Inpatient Services Order for Inpatient Services The services are ordered in accordance with Medicare regulations or non- Medicare payer requirements, as applicable. In the case of services not specified as inpatient-only, they are appropriately provided as inpatient services in accordance with the 2-midnight benchmark. Estimated LOS (days): 2 days is the estimated time the patient will need to remain in the hospital, assuming treatment plan goals are met and no additional complications. Post-Hospital Plan: Home Problem Qualifiers (1) Alcohol intoxication: Qualified Codes: F10.920 - Alcohol use, unspecified with intoxication, uncomplicated Fitz Barraza Jan 05, 2018 14:49
[2018-01-05] MEDS: NICOTINE 21 MG/24 HR PATCH T-DERMAL SCH (16:55)
[2018-01-05 17:04] LABS: HEMATOCRIT 45.9 % (39.0-51.0); HEMOGLOBIN 16.2 GM/DL (13.0-17.0)
[2018-01-05 23:06] LABS: HEMATOCRIT 50.2 % (39.0-51.0); HEMOGLOBIN 17.1 GM/DL (13.0-17.0)
[2018-01-06] VITALS (8 sets, daily range): BP systolic 121–145; BP diastolic 64–87; PULSE 60–85; RESP 18–19; TEMP 98.1–98.5; O2SAT 93–96
[2018-01-06 05:46] LABS: HEMATOCRIT 44.4 % (39.0-51.0); HEMOGLOBIN 15.6 GM/DL (13.0-17.0); MEAN CELL VOLUME 98.8 FL (80.0-100.0); MEAN CORPUSCULAR HEMOGLOBIN 34.7 PG (27.0-34.0); MEAN CORPUSCULAR HGB CONC 35.1 % (32.0-36.0); MEAN PLATELET VOLUME 8.6 FL (7.0-11.0); PLATELET COUNT 134 TH/MM3 (150-450); RED BLOOD COUNT 4.49 MIL/MM3 (4.50-5.90); RED CELL DISTRIBUTION WIDTH 14.2 % (11.6-17.2); WHITE BLOOD COUNT 5.6 TH/MM3 (4.0-11.0)
[2018-01-06 06:09] LABS: BICARBONATE 27.4 MEQ/L (21.0-32.0); CALCIUM 8.2 MG/DL (8.5-10.1); CREATININE 0.69 MG/DL (0.60-1.30)
--- NOTE | 2018-01-06 08:49 | HHI.GIFU ---
Subjective Remarks Pt resting in bed in NAD. No further hematemesis. "I had such a long sweaty night of detox." Objective Vitals I&O Vital Signs Date Time Temp Pulse Resp B/P (MAP) Pulse Ox O2 Delivery O2 Flow Rate FiO2 01/06/18 08:05 98.2 71 18 145/75 (98) 93 01/06/18 07:48 63 01/06/18 06:15 61 01/06/18 04:34 98.1 72 18 142/74 (96) 95 01/05/18 23:14 98.2 71 18 132/76 (94) 95 01/05/18 20:41 98.0 71 17 153/81 (105) 96 01/05/18 15:23 98.8 83 20 162/73 (102) 90 01/05/18 14:00 98.6 86 20 133/68 (89) 92 01/05/18 13:40 97.2 81 18 121/76 (91) 96 I/O 01/05/18 01/05/18 01/05/18 01/06/18 01/06/18 01/06/18 07:00 15:00 23:00 07:00 15:00 23:00 Intake Total 2000 ml 200 ml Balance 2000 ml 200 ml Intake Oral 0 ml IV Total 2000 ml Other 200 ml # Voids 2 1 # Bowel Movements 0 1 Laboratory Laboratory Tests Test 01/05/18 16:28 01/05/18 22:48 01/06/18 04:45 Hemoglobin 16.2 17.1 15.6 Hematocrit 45.9 50.2 44.4 White Blood Count 5.6 Red Blood Count 4.49 Mean Corpuscular Volume 98.8 Mean Corpuscular Hemoglobin 34.7 Mean Corpuscular Hemoglobin Concent 35.1 Red Cell Distribution Width 14.2 Platelet Count 134 Mean Platelet Volume 8.6 Blood Urea Nitrogen 7 Creatinine 0.69 Random Glucose 67 Calcium Level 8.2 Sodium Level 135 Potassium Level 3.5 Chloride Level 102 Carbon Dioxide Level 27.4 Anion Gap 6 Estimat Glomerular Filtration Rate 122 Imaging Last Impressions Abdomen/Pelvis CT 01/05/18 0020 Signed Impressions: Service Date/Time: Friday, January 05, 2018 01:46 - CONCLUSION: 1. Steatosis of the liver. 2. Bilateral nonobstructing lower pole renal stones. 3. Sigmoid diverticula without radiographic evidence of diverticulitis. Jorge Argueta MD Physical Exam HEENT: PERRL; normocephalic; atraumatic; no jaundice. CHEST: CTA CARDIAC: RRR ABDOMEN: Soft, nondistended, nontender; no hepatosplenomegaly; bowel sounds are present in all four quadrants. EXTREMITIES: No clubbing, cyanosis, or edema. SKIN: Normal; no rash; no jaundice. QUALITY TECHNICIAN: lethargic but answers questions appropriately Assessment and Plan Plan ASSESSMENT - hematemesis, hematochezia - onset 2 days ago vomiting blood and bloody diarrhea. denies prior episodes never had EGD or Colonoscopy. HH WNL. hx significant etoh consumption 40 x beers daily had frankly bloody BM this morning in ER on floor 01/06/18 - s/p EGD on 01/05/18 found duodenal ulcer not bleeding, severe gastritis and gastropathy, severe esophagitis. HH is stable and WNL. no further hematemesis. PLAN - watch for DT - daily protonix - monitor labs pt seen by jackie watts and Dr Bang and this note is on his behalf Kathy Restrepo Jan 06, 2018 08:49
[2018-01-06] MEDS: FOLIC ACID 1 MG TAB PO SCH (08:53)
[2018-01-06] MEDS: PANTOPRAZOLE SODIUM 40 MG VIAL IV PUSH SCH (08:53)
[2018-01-06] MEDS: THIAMINE HCL 100 MG TAB PO SCH (08:53)
[2018-01-06] MEDS: NICOTINE 21 MG/24 HR PATCH T-DERMAL SCH (08:54)
[2018-01-06] MEDS: REMOVE OLD PATCH T-DERMAL SCH (08:54)
[2018-01-06] MEDS: SODIUM CHLORIDE 0.9% FLUSH 10 ML FLUSH IV FLUSH SCH ×2 (08:55→21:00)
[2018-01-06] MEDS ORDERED: INFLUENZA VIRUS VACCINE (QUADRIVALENT) 0.5 ML SYR IM ONE (10:00)
[2018-01-06] MEDS ORDERED: PNEUMOCOCCAL POLYVALENT INJ 25 MCG/0.5 ML SYR IM ONE (10:00)
--- NOTE | 2018-01-06 10:31 | HHI.PR ---
Subjective Remarks Follow-up visit EtOH abuse, GI bleed. Patient seen and examined today with bed. Reports he is doing a lot better. Tolerated clear liquid diet. Reports tremors, diaphoresis. Denies any bloody bowel movements states he checked this morning. Reports anxiety. Reports back pain, spasm. Otherwise, denies SOB/ dyspnea. Denies chest pain, palpitations, headaches, dizziness. Denies fevers, chills, n/v/d. Denies dysuria. Objective Vitals Vital Signs Date Time Temp Pulse Resp B/P (MAP) Pulse Ox O2 Delivery O2 Flow Rate FiO2 01/06/18 08:05 98.2 71 18 145/75 (98) 93 01/06/18 07:48 63 01/06/18 06:15 61 01/06/18 04:34 98.1 72 18 142/74 (96) 95 01/05/18 23:14 98.2 71 18 132/76 (94) 95 01/05/18 20:41 98.0 71 17 153/81 (105) 96 01/05/18 15:23 98.8 83 20 162/73 (102) 90 01/05/18 14:00 98.6 86 20 133/68 (89) 92 01/05/18 13:40 97.2 81 18 121/76 (91) 96 I/O 01/05/18 01/05/18 01/05/18 01/06/18 01/06/18 01/06/18 07:00 15:00 23:00 07:00 15:00 23:00 Intake Total 2000 ml 200 ml Balance 2000 ml 200 ml Intake Oral 0 ml IV Total 2000 ml Other 200 ml # Voids 2 1 # Bowel Movements 0 1 Result Diagram: 01/06/18 0445 01/06/18 0445 Imaging Last Impressions Abdomen/Pelvis CT 01/05/18 0020 Signed Impressions: Service Date/Time: Friday, January 05, 2018 01:46 - CONCLUSION: 1. Steatosis of the liver. 2. Bilateral nonobstructing lower pole renal stones. 3. Sigmoid diverticula without radiographic evidence of diverticulitis. Jorge Argueta MD Objective Remarks GENERAL: This is a well-nourished, well-developed patient, in no apparent distress. SKIN: Warm and dry. Facial and neck erythema - overexposure to sun HEENT: Normocephalic. Pupils equal round and reactive. Nose without bleeding. Airway patent. NECK: Trachea midline. CARDIOVASCULAR: Regular rate and rhythm without murmurs, gallops, or rubs. RESPIRATORY: Diminished breath sounds. No wheezes, rales, or rhonchi. GASTROINTESTINAL: Abdomen soft, non-tender, nondistended. Bowel Sounds normoactive x4. MUSCULOSKELETAL: Extremities without clubbing, cyanosis, or edema. Notable tremors, bilateral upper extremity. NEUROLOGICAL: Awake and alert. Oriented to time, place, person. No focal neuro deficit. Moves all extremities. Normal speech. Procedures S/P EGD A/P Problem List: (1) ETOH abuse ICD Code: F10.10 - Alcohol abuse, uncomplicated (2) Tobacco abuse ICD Code: Z72.0 - Tobacco use Status: Chronic (3) Rectal bleeding ICD Code: K62.5 - Hemorrhage of anus and rectum Status: Acute (4) Alcohol intoxication ICD Code: F10.929 - Alcohol use, unspecified with intoxication, unspecified Status: Acute Assessment and Plan Patient is a 47-year-old male with history of EtOH abuse, seizure withdrawal from alcohol who came into the hospital for complaints of vomiting, bloody diarrhea. GIB, acute Alcohol Related -GI consult. -EGD done. Severe grade D esophagitis with short Tejada's biopsied from distal esophagus. Severe gastritis with gastropathy most likely related to alcohol abuse biopsy from the antrum. Severe duodenitis with ulceration above the active bleeding. Recommends no NSAIDs, Protonix daily, follow-up biopsy. -Monitor for signs and symptoms of bleeding. -Discussed results with patient. - Tolerating clears diet EtOH abuse Alcohol-related seizure withdrawal -Patient was counseled. Discussed GI bleed related to alcohol use. Reports he has been sober for 16 months and has been good with a support group meetings however last week he started to drink about 40 beers per day. -CIWA protocol. CIWA 8 -Ativan IV provided. Notable tremors. History of alcohol seizure withdrawal -Librium 25mg TID started -Monitor for delirium tremens. Tobacco abuse -Counseled. -Nicotine patch DVT prop SCDs. Chemoprophylaxis contraindicated for down Problem Qualifiers (1) Alcohol intoxication: Qualified Codes: F10.920 - Alcohol use, unspecified with intoxication, uncomplicated Nudalo-Briganti,Iszenn WEB PROGRAMMER Jan 06, 2018 10:31
[2018-01-06] MEDS ORDERED: BACLOFEN 10 MG TAB PO PRN (10:45)
[2018-01-06] MEDS: LORazepam 2 MG/ML VIAL IV PUSH PRN ×3 (10:50→22:49)
[2018-01-06] MEDS: chlordiazePOXIDE 25 MG CAP PO SCH ×2 (12:08→17:37)
[2018-01-06] MEDS: PANTOPRAZOLE SOD 40 MG DELAYED RELEASE TAB PO SCH (12:13)
[2018-01-07] VITALS: BP 134/79; PULSE 71; RESP 20; TEMP 95.7; O2SAT 95
[2018-01-07 04:00] VITALS: BP 142/85; PULSE 68; RESP 20; TEMP 95.8; O2SAT 93
[2018-01-07] MEDS: chlordiazePOXIDE 25 MG CAP PO SCH (07:43)
[2018-01-07] MEDS: FOLIC ACID 1 MG TAB PO SCH (07:43)
[2018-01-07] MEDS: THIAMINE HCL 100 MG TAB PO SCH (07:43)
[2018-01-07] MEDS: PANTOPRAZOLE SOD 40 MG DELAYED RELEASE TAB PO SCH (07:43)
[2018-01-07] MEDS: NICOTINE 21 MG/24 HR PATCH T-DERMAL SCH (07:44)
[2018-01-07] MEDS: REMOVE OLD PATCH T-DERMAL SCH (07:44)
[2018-01-07] MEDS: SODIUM CHLORIDE 0.9% FLUSH 10 ML FLUSH IV FLUSH SCH (07:44)
[2018-01-07 08:00] VITALS: BP 141/87; PULSE 65; RESP 16; TEMP 96.1; O2SAT 95
--- NOTE | 2018-01-07 09:00 | PD.PSY.CON ---
Provisional Diagnosis Admission Date Jan 05, 2018 at 02:56 Viola I. Alcohol use disorder, alcohol induced mood disorder Viola II. Deferred Viola III. GI bleeding Viola IV. Persisting alcohol use disorder Viola V. 55 History of Present Illness Service Psychiatry Consult Requested By Medical team Reason for Consult On the Brantley at Primary Care Physician No Primary Care Physician HPI The patient is a 47-year-old man, domiciled with his girlfriend Arcadio, self employed as an artist, he is an artistic sign painter, with psychiatric history of EtOH use disorder, no previous psychiatric hospitalizations, no previous suicidal attempts, he has several ER visits due to alcohol related problems, patient has been in multiple detox/rehabilitation's , connected at this moment with group therapy in [facility], he has medical history of GI bleeding, DTs, seizure withdrawal from alcohol who came into the hospital for complaints of vomiting, bloody diarrhea. EGD done. Severe grade D esophagitis with short Tejada's biopsied from distal esophagus. Severe gastritis with gastropathy most likely related to alcohol abuse biopsy from the antrum. Severe duodenitis with ulceration above the active bleeding. Patient consulted to psychiatry because he was initially Brantley acted due to SI. On psychiatric evaluation today the patient is calm, cooperative, pleasant. The patient says that he was initially Brantley acted because he was reluctant to come to the hospital and his girlfriend became concerned and called the police. He never expressed suicidal ideation. Patient says that he has too many reasons to live for. Patient reports that he is an alcoholic, but he is a happy person. Says that he may his life painting and he has several projects coming on. At this moment the patient denies anhedonia, denies hopelessness, denies depression, denies psychosis, denies shell, denies suicidal and homicidal ideation, he denies visual and auditory hallucinations. The patient is fully oriented 3, no attention deficit, no fluctuation of consciousness. He says that he has been alcoholic for a long time, with several periods of sobriety and relapse, he has been in several detox and rehabs in the past, including AA and most recently in a group therapy in [facility]. Review of Systems Constitutional: DENIES: Diaphoretic episodes, Fatigue, Fever, Weight gain, Weight loss, Chills, Dizziness, Change in appetite, Night Sweats Endocrine: DENIES: Heat/cold intolerance, Polydipsia, Polyuria, Polyphagia Eyes: DENIES: Blurred vision, Diplopia, Eye inflammation, Eye pain, Vision loss , Photosensitivity, Double Vision Ears, nose, mouth, throat: DENIES: Tinnitus, Hearing loss, Vertigo, Nasal discharge, Oral lesions, Throat pain, Hoarseness, Ear Pain, Running Nose, Epistaxis, Sinus Pain, Toothache, Odynophagia Respiratory: DENIES: Apneas, Cough, Snoring, Wheezing, Hemoptysis, Sputum production, Shortness of breath Cardiovascular: DENIES: Chest pain, Palpitations, Syncope, Dyspnea on Exertion , PND, Lower Extremity Edema, Orthopnea, Claudication Gastrointestinal: DENIES: Abdominal pain, Black stools, Bloody stools, Constipation, Diarrhea, Nausea, Vomiting, Difficulty Swallowing, Anorexia Genitourinary: DENIES: Sexual dysfunction, Urinary frequency, Urinary incontinence, Urgency, Hematuria, Dysuria, Nocturia, Penile Discharge, Testicular Pain, Testicular Swelling Musculoskeletal: DENIES: Joint pain, Muscle aches, Stiffness, Joint Swelling, Back pain, Neck pain Integumentary: DENIES: Abnormal pigmentation, Nail changes, Pruritus, Rash Hematologic/lymphatic: DENIES: Bruising, Lymphadenopathy Immunologic/allergic: DENIES: Eczema, Urticaria Neurologic: DENIES: Abnormal gait, Headache, Localized weakness, Paresthesias, Seizures, Speech Problems, Tremor, Poor Balance Psychiatric: DENIES: Anxiety, Confusion, Mood changes, Depression, Hallucinations, Agitation, Suicidal Ideation, Homicidal Ideation, Delusions Past Family Social History Coded Allergies: No Known Allergies (Verified Adverse Reaction, Unknown, 01/04/18) Reported Medications Ranitidine (Ranitidine) 150 Mg Cap, 150 MG PO DAILY, #30 CAP 0 Refills 01/04/18 Current Medications Medications (Trade) Dose Ordered Sig/Tierra Route Start Time Stop Time Status Last Admin (NS Flush) 2 ml UNSCH PRN IV FLUSH 01/05/18 03:00 (NS Flush) 2 ml BID IV FLUSH 01/05/18 09:00 01/07/18 07:44 (Zofran Inj) 4 mg Q6H PRN IV PUSH 01/05/18 03:00 (Romazicon Inj) 0.2 mg Q1M PRN IV PUSH 01/05/18 03:00 (Ativan) 1 mg Q4H PRN PO 01/05/18 03:00 (Ativan Inj) 1 mg Q4H PRN IV PUSH 01/05/18 03:00 01/06/18 22:49 (Ativan) 2 mg Q2H PRN PO 01/05/18 03:00 01/07/18 07:42 (Ativan Inj) 2 mg Q2H PRN IV PUSH 01/05/18 03:00 (Ativan Inj) 2 mg Q1H PRN IV PUSH 01/05/18 03:00 (Ativan Inj) 2 mg Q15M PRN IV PUSH 01/05/18 03:00 Lactated Ringer's 1,000 ml @ 30 mls/hr Q24H PRN IV 01/05/18 13:15 01/08/18 13:14 Sodium Chloride 500 ml @ 30 mls/hr [id number] PRN IV 01/05/18 13:15 01/08/18 13:14 (Lopressor) 25 mg CUSTOMER COUNTER REPRESENTATIVE PRN PO 01/05/18 13:15 01/08/18 13:14 (Betadine 5% Antisepsis Kit) 1 applic CUSTOMER COUNTER REPRESENTATIVE PRN EACH NARE 01/05/18 13:15 01/08/18 13:14 (Chlorhexidine 2% Cloth) 3 pack CUSTOMER COUNTER REPRESENTATIVE PRN TOPICAL 01/05/18 13:15 01/08/18 13:14 (Habitrol 21 Mg Patch.24 Hr) 1 patch DAILY T-DERMAL 01/05/18 15:00 01/07/18 07:44 Miscellaneous Information 1 DAILY T-DERMAL 01/06/18 09:00 01/07/18 07:44 (Folate) 1 mg DAILY PO 01/06/18 09:00 01/07/18 07:43 (Vitamin B1) 100 mg DAILY PO 01/06/18 09:00 01/07/18 07:43 (Lioresal) 10 mg Q8HR PRN PO 01/06/18 10:45 01/06/18 11:39 (Librium) 25 mg TID PO 01/06/18 13:00 01/07/18 07:43 (Protonix) 40 mg DAILY PO 01/06/18 12:00 01/07/18 07:43 Family Psych History No family psychiatric history Social History Patient was born and raised in [facility], he lives in [place] his girlfriend, he is self employed as a sign painter, he has college degree in [employer] school Patient's Strengths (min. 2) Employed Physical Exam No tremors at this moment, no seizures, no fluctuation of consciousness, no EPS , and no withdrawal symptoms Vital Signs Vital Signs Date Time Temp Pulse Resp B/P (MAP) Pulse Ox O2 Delivery O2 Flow Rate FiO2 01/07/18 04:00 95.8 68 20 142/85 (104) 93 01/05/18 02:22 Room Air I/O 01/07/18 01/07/18 01/08/18 08:00 16:00 00:00 Intake Total 400 ml Balance 400 ml Mental Status Examination Appearance: Appropriate Consciousness: Alert Orientation: x4 Motor Activity: Normal gait Speech: Unremarkable Language: Adequate Fund of Knowledge: Adequate Attention and Concentration: Adequate Memory: Unremarkable Mood: Appropriate Affect: Appropriate Thought Process & Associations: Intact Thought Content: Appropriate Hallucination Type: None Delusion Type: None Suicidal Ideation: No Suicidal Plan: No Suicidal Intention: No Homicidal Ideation: No Homicidal Plan: No Homicidal Intention: No Insight: Adequate Judgment: Adequate Assessment & Plan Problem List: (1) Alcohol abuse with alcohol-induced mood disorder ICD Codes: F10.14 - Alcohol abuse with alcohol-induced mood disorder Assessment & Plan: On psychiatric evaluation today the patient does not present any concerning, significant acute neuropsychiatric symptoms that require an immediate psychiatric intervention. The patient denies depression, denies anxiety, denies shell and psychosis. The patient denies suicidal and homicidal ideation. The patient denies visual and auditory hallucinations. Patient is logical, coherent and relevant. Oriented 3. Patient does not meet criteria for involuntary psychiatric admission at this moment. Patient can continue group therapy for alcoholism in [facility]. Brief supportive psychotherapy, motivation provided. Continue CIWA. Brantley act will be lifted. Assessment & Plan Estimated LOS: Rudy Zhao MD Jan 07, 2018 08:59
[2018-01-07] MEDS ORDERED: THIA100 PO (10:06)
[2018-01-07] MEDS ORDERED: FOLI1TAB6 PO (10:06)
[2018-01-07] MEDS ORDERED: CHLO25CA9 PO (10:06)
--- NOTE | 2018-01-07 10:12 | HHI.PR ---
Subjective Remarks Follow up EtOH abuse, seizure withdrawal from alcohol who came into the hospital for complaints of vomiting, bloody diarrhea. 01/07/18-patient seen and examined, patient is alert and oriented 3, He was seen by psychiatry today and Brantley act was lifted Objective Vitals Vital Signs Date Time Temp Pulse Resp B/P (MAP) Pulse Ox O2 Delivery O2 Flow Rate FiO2 01/07/18 08:00 96.1 65 16 141/87 (105) 95 01/07/18 04:00 95.8 68 20 142/85 (104) 93 01/07/18 00:00 95.7 71 20 134/79 (97) 95 01/06/18 20:03 98.5 80 18 127/64 (85) 96 01/06/18 15:51 98.3 85 18 121/75 (90) 95 01/06/18 13:15 60 01/06/18 11:58 98.3 75 19 143/87 (105) 93 I/O 01/06/18 01/06/18 01/06/18 01/07/18 01/07/18 01/07/18 07:00 15:00 23:00 07:00 15:00 23:00 Intake Total 240 ml 400 ml Balance 240 ml 400 ml Intake Oral 240 ml 400 ml # Voids 0 Result Diagram: 01/06/18 0445 01/06/18 0445 Imaging Last Impressions Abdomen/Pelvis CT 01/05/18 0020 Signed Impressions: Service Date/Time: Friday, January 05, 2018 01:46 - CONCLUSION: 1. Steatosis of the liver. 2. Bilateral nonobstructing lower pole renal stones. 3. Sigmoid diverticula without radiographic evidence of diverticulitis. Jorge Argueta MD Objective Remarks GENERAL: NAD with mild tremors SKIN: Warm and dry. HEAD: Normocephalic. EYES: No scleral icterus. No injection or drainage. NECK: Supple, trachea midline. No JVD or lymphadenopathy. CARDIOVASCULAR: Regular rate and rhythm without murmurs, gallops, or rubs. RESPIRATORY: Breath sounds equal bilaterally. No accessory muscle use. GASTROINTESTINAL: Abdomen soft, non-tender, nondistended. MUSCULOSKELETAL: No cyanosis, or edema. BACK: Nontender without obvious deformity. No CVA tenderness. Procedures S/P EGD A/P Problem List: (1) ETOH abuse ICD Code: F10.10 - Alcohol abuse, uncomplicated (2) Tobacco abuse ICD Code: Z72.0 - Tobacco use Status: Chronic (3) Rectal bleeding ICD Code: K62.5 - Hemorrhage of anus and rectum Status: Acute (4) Alcohol intoxication ICD Code: F10.929 - Alcohol use, unspecified with intoxication, unspecified Status: Acute Assessment and Plan 47 years old man with GIB, acute Alcohol Related -GI input appreciated -EGD done. Severe grade D esophagitis with short Tejada's biopsied from distal esophagus. Severe gastritis with gastropathy most likely related to alcohol abuse biopsy from the antrum. Severe duodenitis with ulceration above the active bleeding. Recommends no NSAIDs, Protonix daily, follow-up biopsy. EtOH abuse Alcohol-related seizure withdrawal -Patient was counseled. -CIWA protocol. -Ativan IV provided. -Librium 25mg TID -Seen by psychiatry, and recommended that Patient can continue group therapy for alcoholism in [facility]. Brief supportive psychotherapy, motivation provided. Brantley act will be lifted Tobacco abuse -Counseled. -Nicotine patch DVT prop SCDs. Chemoprophylaxis contraindicated for down Problem Qualifiers (1) Alcohol intoxication: Qualified Codes: F10.920 - Alcohol use, unspecified with intoxication, uncomplicated Noe Ya MD Jan 07, 2018 10:12
--- NOTE | 2018-01-07 10:16 | HHI.DS ---
Discharge Summary Admission Date Jan 05, 2018 at 02:56 Discharge Date: Jan 07, 2018 Admitting Diagnosis rectal bleeding, alcohol intoxication (1) ETOH abuse ICD Code: F10.10 - Alcohol abuse, uncomplicated (2) Tobacco abuse ICD Code: Z72.0 - Tobacco use Status: Chronic (3) Rectal bleeding ICD Code: K62.5 - Hemorrhage of anus and rectum Status: Acute (4) Alcohol intoxication ICD Code: F10.929 - Alcohol use, unspecified with intoxication, unspecified Status: Acute Procedures S/P EGD Brief History - From Admission Patient is a 47-year-old male with history of EtOH abuse, seizure withdrawal from alcohol who came into the hospital for complaints of vomiting, bloody diarrhea. Patient just came back from EGD. Patient was asked with they have said states that he does not remember, "they told me big words I didn't remember." Patient reports that he had bloody BM this morning at the hospital states that he may do best. Also admits to drinking alcohol about 40 beers a day, smokes 2 packs of cigarettes per day. Patient states that he attempts to be sober and he was sober for 16 months until last week that he started drinking 40 beers per day. Reports seizure withdrawal from alcohol states it has been a while back that he had seizures does not remember if it reoccurred within the year. Otherwise patient denies chest pain, palpitations, headaches, dizziness. Reports tremors and increasing tremors and anxiety. Denies any fevers, chills, nausea, vomiting, diarrhea with this exam. Denies any dysuria CBC/BMP: 01/06/18 0445 01/06/18 0445 Significant Findings Laboratory Tests Test 01/04/18 22:54 01/04/18 23:23 01/05/18 03:13 01/05/18 16:28 Urine Benzodiazepines Screen POS (NEG) Mean Corpuscular Hemoglobin 34.8 PG (27.0-34.0) Lymphocytes (%) (Auto) 44.2 % (9.0-44.0) Monocytes (%) (Auto) 11.1 % (0.0-8.0) Blood Urea Nitrogen 2 MG/DL (7-18) Albumin 3.2 GM/DL (3.4-5.0) Aspartate Amino Transf (AST/SGOT) 58 U/L (15-37) Ethyl Alcohol Level 298 MG/DL (0-5) Test 01/05/18 22:48 01/06/18 04:45 Hemoglobin 17.1 GM/DL (13.0-17.0) Red Blood Count 4.49 MIL/MM3 (4.50-5.90) Mean Corpuscular Hemoglobin 34.7 PG (27.0-34.0) Platelet Count 134 TH/MM3 (150-450) Random Glucose 67 MG/DL (74-106) Calcium Level 8.2 MG/DL (8.5-10.1) Sodium Level 135 MEQ/L (136-145) Imaging Last Impressions Abdomen/Pelvis CT 01/05/18 0020 Signed Impressions: Service Date/Time: Friday, January 05, 2018 01:46 - CONCLUSION: 1. Steatosis of the liver. 2. Bilateral nonobstructing lower pole renal stones. 3. Sigmoid diverticula without radiographic evidence of diverticulitis. Jorge Argueta MD PE at Discharge GENERAL: NAD with mild tremors SKIN: Warm and dry. HEAD: Normocephalic. EYES: No scleral icterus. No injection or drainage. NECK: Supple, trachea midline. No JVD or lymphadenopathy. CARDIOVASCULAR: Regular rate and rhythm without murmurs, gallops, or rubs. RESPIRATORY: Breath sounds equal bilaterally. No accessory muscle use. GASTROINTESTINAL: Abdomen soft, non-tender, nondistended. MUSCULOSKELETAL: No cyanosis, or edema. BACK: Nontender without obvious deformity. No CVA tenderness. Hospital Course While in the hospital , patient was treated for GIB, acute Alcohol Related -GI input appreciated -EGD done. Severe grade D esophagitis with short Tejada's biopsied from distal esophagus. Severe gastritis with gastropathy most likely related to alcohol abuse biopsy from the antrum. Severe duodenitis with ulceration above the active bleeding. Recommends no NSAIDs, Protonix daily, follow-up biopsy. EtOH abuse Alcohol-related seizure withdrawal -Patient was counseled. -WA protocol. -Ativan IV provided. -Librium 25mg TID -Seen by psychiatry, and recommended that Patient can continue group therapy for alcoholism in [facility]. Brief supportive psychotherapy, motivation provided. Brantley act will be lifted Tobacco abuse -Counseled. -Nicotine patch DVT prop SCDs. Chemoprophylaxis contraindicated for down Pt Condition on Discharge: Good Discharge Disposition: Discharge Home Discharge Time: <= 30 minutes Discharge Instructions DIET: Follow Instructions for: As Tolerated, No Restrictions Activities you can perform: Regular-No Restrictions Follow up Referrals: PCP Follow-up - 1 Week New Medications: Chlordiazepoxide HCl (Chlordiazepoxide HCl) 25 Mg Capsule 25 MG PO TID for Alcohol Detox, #15 MG Folic Acid (Folic Acid) 1 Mg Tablet 1 MG PO DAILY for Alcohol Detox, #30 MG 11 Refills Thiamine HCl (Gnp Vitamin B-1) 100 Mg Tab 100 MG PO DAILY for Alcohol Detox, #30 TAB 11 Refills Continued Medications: Ranitidine (Ranitidine) 150 Mg Cap 150 MG PO DAILY, #30 CAP 0 Refills Noe Ya MD Jan 07, 2018 10:16
[2018-01-07] MEDS ORDERED: AMOX500T PO (11:21)
[2018-01-07] MEDS ORDERED: LACTCHW3 CHEW (11:21)
== END 2018-01-07 13:05 | disposition home or self-care (01) | DRG 378 ==
LOC: NEPE 22:41 → NEDA 01-05 02:42 → OBSVTOIN 01-05 02:56 → NEPHCDU 01-05 03:26 → N07A 01-06 22:31
PROVIDERS: ADMIT Hospitalist; ATTEND Hospitalist
PROC: 0DB78ZX Excision of Stomach, Pylorus, Via Natural or Artificial Opening Endoscopic, Diagnostic (ICD-10-PCS; 2018-01-05)
PROC: 0DB38ZX Excision of Lower Esophagus, Via Natural or Artificial Opening Endoscopic, Diagnostic (ICD-10-PCS; principal; 2018-01-05 12:56)
DX: K29.21 Alcoholic gastritis with bleeding (principal); F10.239 Alcohol dependence with withdrawal, unspecified; F10.24 Alcohol dependence with alcohol-induced mood disorder; K22.70 Barrett's esophagus without dysplasia; K26.4 Chronic or unspecified duodenal ulcer with hemorrhage; K21.0 Gastro-esophageal reflux disease with esophagitis; K31.9 Disease of stomach and duodenum, unspecified; F10.229 Alcohol dependence with intoxication, unspecified; F17.210 Nicotine dependence, cigarettes, uncomplicated; Y90.8 Blood alcohol level of 240 mg/100 ml or more; Z23 Encounter for immunization
CPT/HCPCS: 74177; 80048; 80053; 80307; 81001; 85014; 85018; 85025; 85027; 85610; 85730; 86850; 86900; 86901; 88305; 88312; 90686; 90732; 96361; 96374; C9113; J2060; J2250; J7030; Q2038; Q9967

== ENCOUNTER 2018-01-22 20:39 | Emergency (ER) | payer SELFPAY ==
[~2018-01-22 20:39] MED LIST changes: +AMOX500T PO; -CLIN150 PO; +FOLI1TAB6 PO; +LACTCHW3 CHEW; -LORA-650 PO; +RANI150C PO; +THIA100 PO
[2018-01-22 20:42] VITALS: BP 150/95; PULSE 83; RESP 18; TEMP 97.5; O2SAT 93
[2018-01-22] MEDS ORDERED: PANTOPRAZOLE INJ 80 MG in SODIUM CHLORIDE 0.9% INJ 100 ML IV SCH (23:30)
[2018-01-22] MEDS ORDERED: THIAMINE INJ 100 MG in SODIUM CHLORIDE 0.9% INJ 100 ML IV ONE (23:30)
[2018-01-22] MEDS ORDERED: SODIUM CHLOR 0.9% 1000 ML INJ 1,000 ML IV ONE (23:30)
[2018-01-22] MEDS ORDERED: PANTOPRAZOLE INJ 80 MG in SODIUM CHLORIDE 0.9% INJ 35 ML IV ONE (23:30)
[2018-01-22] MEDS ORDERED: ONDANSETRON HCL 4 MG/2 ML VIAL IV ONE (23:30)
--- NOTE | 2018-01-22 23:50 | PD ---
HPI Chief Complaint: GI Complaint Time Seen by Provider: 23:19 Travel History International Travel<30 days: No Contact w/Intl Traveler<30days: No Traveled to known affect area: No History of Present Illness HPI The patient is a 47 year old male who presents to the [facility] emergency department with a history of worsening nausea, vomiting, and diarrhea since he was discharged from the hospital for a week ago. The patient reports that he was admitted to the hospital related to a GI bleed. He reports that he has been taking the medications that were previously prescribed at discharge, however they are not helping. He reports that in the last 24 hours he has had nausea and vomiting 4 with bloody emesis. He reports that he has had diarrhea 12 that also has blood. From reviewing the record the patient was diagnosed with duodenitis and duodenal ulcer that was actively bleeding along with gastritis and esophagitis. The patient was discharged home on ranitidine. Unfortunately, the patient continues to drink alcohol. He reports that he drinks 30 beers daily. On review of systems otherwise, the patient denies having any recent fevers or chills, worsening cough or congestion, neck pain, chest pain, shortness of breath, abdominal pain, urinary symptoms, or neurologic symptoms. The patient was sleeping soundly on my arrival to the room [facility] Past Medical History Narrative Medical The patient's past medical history is significant for alcohol abuse, acid reflux , bipolar disorder, schizophrenia, history of GI bleed with recent admission to the hospital and endoscopy done earlier in January that revealed severe grade D esophagitis, severe gastritis with gastropathy, severe duodenitis with ulceration and active bleeding at that site, history of alcohol related withdrawal seizures. Arthritis: No Autoimmune Disease: No Blood Disorders: No Bipolar Disorder: Yes Anxiety: Yes Depression: Yes Cancer: No Cardiovascular Problems: No Cerebrovascular Accident: No Diminished Hearing: No Endocrine: No GERD: Yes Genitourinary: No Headaches: Yes Hiatal Hernia: No Immune Disorder: No Musculoskeletal: Yes Neurologic: Yes Psychiatric: Yes (ALCOHOLISM) Reproductive: No Respiratory: No Immunizations Current: Yes Migraines: No Schizophrenia: Yes Seizures: Yes Ulcer: No Past Surgical History Narrative Surgical The patient's past surgical history is significant for endoscopy. AICD: No Arteriovenous Shunt: No Insulin Pump: No Joint Replacement: No Pacemaker: No Other Surgery: No Social History Alcohol Use: Yes (PT is intoxicated, STATES DRINKS BEER DAILY) Tobacco Use: Yes (2 PPD) Substance Use: No Allergies-Medications (Allergen,Severity, Reaction): Coded Allergies: No Known Allergies (Verified Adverse Reaction, Unknown, 01/04/18) Reported Meds & Prescriptions Reported Meds & Active Scripts Active Zofran Odt (Ondansetron Odt) 4 Mg Tab 4 Mg SL Q6HR PRN Protonix (Pantoprazole Sodium) 40 Mg Tab 40 Mg PO DAILY Lactinex (Lactobacillus Acidophilus) 1 Chew 1 Tab CHEW BID Amoxicillin 500 Mg Tab 500 Mg PO TID Gnp Vitamin B-1 (Thiamine HCl) 100 Mg Tab 100 Mg PO DAILY Folic Acid 1 Mg Tablet 1 Mg PO DAILY Chlordiazepoxide HCl 25 Mg Capsule 25 Mg PO TID Review of Systems Except as stated in HPI: all other systems reviewed are Neg General / Constitutional: No: Fever Eyes: No: Visual changes HENT: No: Headaches Cardiovascular: No: Chest Pain or Discomfort Respiratory: No: Shortness of Breath Gastrointestinal: Positive: Nausea, Vomiting, Diarrhea, Abdominal Pain Genitourinary: No: Dysuria Musculoskeletal: No: Pain Skin: No Rash Neurologic: No: Weakness Psychiatric: No: Depression Endocrine: No: Polydipsia Hematologic/Lymphatic: No: Easy Bruising Physical Exam Narrative General: The patient is a well-developed well nourished male in no acute distress, sleeping soundly on my arrival to room. Head and Neck exam: Head is normocephalic atraumatic. Eyes: EOMI, pupils are equal round and reactive to light. Nose: Midline septum with pink mucous membranes Mouth: Dentition unremarkable. Moist mucus membranes. Posterior oropharynx is not erythematous. No tonsillar hypertrophy. Uvula midline. Airway patent. Neck: No palpable lymphadenopathy. No nuchal rigidity. No thyromegaly. Cardiovascular: Regular rate and rhythm without murmurs, gallops, or rubs. Lungs: Clear to auscultation bilaterally. No wheezes, rhonchi, or rales. Abdomen: Soft, without tenderness to palpation in all 4 quadrants of the abdomen. No guarding, rebound, or rigidity. Normal bowel sounds are audible. No tenderness on palpation of McBurney's point. Negative Fortune sign. Extremities: No clubbing, cyanosis, or edema. 2+ pulses in all 4 extremities. Back: No spinous process tenderness to palpation. No costovertebral angle tenderness to palpation. Neurologic Exam: Grossly nonfocal. The patient has no asterixis or tremulousness noted. Skin Exam: No rash noted. Intact skin that is warm and dry. RECTAL EXAM: No masses or tenderness, stool is brown. Stool is Hemoccult negative. Data Data Last Documented VS Vital Signs Date Time Temp Pulse Resp B/P (MAP) Pulse Ox O2 Delivery O2 Flow Rate FiO2 01/23/18 02:00 71 16 138/90 (106) 94 Room Air 01/22/18 20:42 97.5 Orders Orders Complete Blood Count With Diff (01/22/18 20:45) Comprehensive Metabolic Panel (01/22/18 20:45) Lipase (01/22/18 20:45) Ammonia (01/22/18 20:45) Prothrombin Time / Inr (Pt) (01/22/18 20:45) Act Partial Throm Time (Ptt) (01/22/18 20:45) Alcohol (Ethanol) (01/22/18 20:45) Type And Screen (01/22/18 20:45) Sodium Chlor 0.9% 1000 Ml Inj (Ns 1000 M (01/22/18 23:30) Ondansetron Inj (Zofran Inj) (01/22/18 23:30) Thiamine Inj (Thiamine Inj) (01/22/18 23:30) Iv Access Insert/Monitor (01/22/18 23:21) Ecg Monitoring (01/22/18 23:21) Oximetry (01/22/18 23:21) Pantoprazole Inj (Protonix Inj) (01/22/18 23:30) Pantoprazole Inj (Protonix Inj) (01/22/18 23:30) Chlordiazepoxide (Librium) (01/23/18 02:45) Labs Laboratory Tests Test 01/23/18 01:30 White Blood Count 6.0 TH/MM3 Red Blood Count 5.19 MIL/MM3 Hemoglobin 17.9 GM/DL Hematocrit 50.8 % Mean Corpuscular Volume 97.9 FL Mean Corpuscular Hemoglobin 34.6 PG Mean Corpuscular Hemoglobin Concent 35.3 % Red Cell Distribution Width 13.9 % Platelet Count 153 TH/MM3 Mean Platelet Volume 8.3 FL Neutrophils (%) (Auto) 45.7 % Lymphocytes (%) (Auto) 42.2 % Monocytes (%) (Auto) 7.2 % Eosinophils (%) (Auto) 3.1 % Basophils (%) (Auto) 1.8 % Neutrophils # (Auto) 2.7 TH/MM3 Lymphocytes # (Auto) 2.5 TH/MM3 Monocytes # (Auto) 0.4 TH/MM3 Eosinophils # (Auto) 0.2 TH/MM3 Basophils # (Auto) 0.1 TH/MM3 CBC Comment DIFF FINAL Differential Comment Prothrombin Time 10.2 SEC Prothromb Time International Ratio 1.0 RATIO Activated Partial Thromboplast Time 28.4 SEC Blood Urea Nitrogen 2 MG/DL Creatinine 0.75 MG/DL Random Glucose 73 MG/DL Total Protein 7.3 GM/DL Albumin 3.0 GM/DL Calcium Level 8.5 MG/DL Alkaline Phosphatase 71 U/L Aspartate Amino Transf (AST/SGOT) 88 U/L Alanine Aminotransferase (ALT/SGPT) 63 U/L Total Bilirubin 0.5 MG/DL Sodium Level 141 MEQ/L Potassium Level 4.2 MEQ/L Chloride Level 102 MEQ/L Carbon Dioxide Level 28.9 MEQ/L Anion Gap 10 MEQ/L Estimat Glomerular Filtration Rate 111 ML/MIN Ammonia 21 MCMOL/L Lipase 283 U/L Ethyl Alcohol Level 181 MG/DL MDM Medical Decision Making Medical Screen Exam Complete: Yes Emergency Medical Condition: Yes Medical Record Reviewed: Yes Differential Diagnosis Recurrent peptic ulcer bleed, versus hemorrhagic esophagitis, versus AVM, versus variceal bleed Narrative Course During the course of the patient's emergency department visit, the patient's history, examination, and differential diagnosis were reviewed with the patient. The patient was placed on a gambling monitor with oximetry and frequent blood pressure monitoring. The patient had IV access obtained and blood work sent for analysis. The patient was typed and screened The patient was initially provided the patient was started on normal saline 1 L IV fluid bolus, thiamine 100 mg IV, Protonix 80 mg IV. Initially a Protonix drip was ordered, however the patient's laboratory studies came back and showed no acute findings and the patient's rectal examination was Hemoccult negative, therefore this was not deemed to be necessary. The patient had no episodes of vomiting or diarrhea in the emergency department. The patient's laboratory studies were reviewed and remarkable for a white count of 6, hemoglobin 17.9, platelets 153 with a normal differential, CMP is remarkable for a BUN of 2, glucose 73, AST 88, ammonia level 21, albumin 3.0, lipase 283. PT PTT within normal limit, alcohol level 181. The patient was discharged home on ranitidine. The patient will have the ranitidine switched to Protonix. The patient was instructed to discontinue the ranitidine. The patient was given a dose of Librium in the emergency department. The patient reports that he is interested in detoxification programs. The patient was given information regarding the [facility] for follow-up. The patient is resting comfortably and feels better, is alert and in no distress. The patient's results and examination findings were discussed with the patient. The repeat examination is unremarkable and benign. The history, exam, diagnostic testing, and current condition do not suggest any significant pathology to warrant further testing, continued ED treatment, admission, or surgical evaluation at this point. The vital signs have been stable. The patient does not have uncontrollable pain, intractable vomiting, or other significant symptoms. The patient's condition is stable and appropriate for discharge. The patient will pursue further outpatient evaluation with a primary care physician or other designated or consulting physician as indicated in the discharge instructions. The patient expressed understanding and was agreeable with this plan. Diagnosis Primary Impression: Peptic ulcer disease Additional Impression: Alcohol abuse Referrals: [facility] 2 days Primary Care Physician 2 days [facility] as needed Patient Instructions: Abuse of Alcohol (ED), Duodenitis (ED), Gastroesophageal Reflux Disease (ED), General Instructions, Peptic Ulcer (ED) Med/Other Pt SpecificInfo: Prescription(s) given Scripts Ondansetron Odt (Zofran Odt) 4 Mg Tab 4 MG SL Q6HR Y for Nausea/Vomiting, #7 TAB 0 Refills Prov: Pura Colmenares MD 01/23/18 Pantoprazole (Protonix) 40 Mg Tab 40 MG PO DAILY for Reflux, #30 TAB 0 Refills Prov: Pura Colmenares MD 01/23/18 Disposition: 01 DISCHARGE HOME Condition: Stable Pura Colmenares MD Jan 22, 2018 23:50
[2018-01-23 01:30] VITALS: BP 150/91; PULSE 80; RESP 18; O2SAT 96
[2018-01-23 02:00] VITALS: BP 138/90; PULSE 71; RESP 16; O2SAT 94
[2018-01-23 02:15] LABS: AUTOMATED NEUTROPHIL # 2.7 TH/MM3 (1.8-7.7); BASOPHIL # 0.1 TH/MM3 (0-0.2); BASOPHIL % 1.8 % (0.0-2.0); EOSINOPHIL # 0.2 TH/MM3 (0-0.4); EOSINOPHIL % 3.1 % (0.0-4.0); HEMATOCRIT 50.8 % (39.0-51.0); HEMOGLOBIN 17.9 GM/DL (13.0-17.0); LYMPH % 42.2 % (9.0-44.0); LYMPHOCYTE # 2.5 TH/MM3 (1.0-4.8); MEAN CELL VOLUME 97.9 FL (80.0-100.0); MEAN CORPUSCULAR HEMOGLOBIN 34.6 PG (27.0-34.0); MEAN CORPUSCULAR HGB CONC 35.3 % (32.0-36.0); MEAN PLATELET VOLUME 8.3 FL (7.0-11.0); MONO % 7.2 % (0.0-8.0); MONOCYTE # 0.4 TH/MM3 (0-0.9); NEUT % 45.7 % (16.0-70.0); PLATELET COUNT 153 TH/MM3 (150-450); RED BLOOD COUNT 5.19 MIL/MM3 (4.50-5.90); RED CELL DISTRIBUTION WIDTH 13.9 % (11.6-17.2)
[2018-01-23 02:24] LABS: PROTHROMBIN TIME - PATIENT 10.2 SEC (9.8-11.6)
[2018-01-23 02:32] LABS: ALKALINE PHOSPHATASE 71 U/L (45-117); TOTAL BILIRUBIN ADULT 0.5 MG/DL (0.2-1.0); TOTAL PROTEIN 7.3 GM/DL (6.4-8.2)
[2018-01-23 02:34] LABS: ALT (GPT) 63 U/L (12-78); AST (GOT) 88 U/L (15-37); BICARBONATE 28.9 MEQ/L (21.0-32.0); BLOOD UREA NITROGEN 2 MG/DL (7-18); CALCIUM 8.5 MG/DL (8.5-10.1); CHLORIDE 102 MEQ/L (98-107); CREATININE 0.75 MG/DL (0.60-1.30); GLOMERULAR FILTRATION RATE 111 ML/MIN (>89); GLUCOSE,RANDOM 73 MG/DL (74-106); SODIUM (NA) 141 MEQ/L (136-145)
[2018-01-23] MEDS ORDERED: PROT40TA PO (02:45)
[2018-01-23] MEDS ORDERED: chlordiazePOXIDE 25 MG CAP PO PRN (02:45)
[2018-01-23] MEDS ORDERED: ZOFR4TAB3 SL (02:46)
[2018-01-23 03:50] VITALS: BP 139/77
== END 2018-01-23 04:07 | disposition home or self-care (01) ==
LOC: NED 20:39 → NEPC 01-23 04:07
DX: K27.9 Peptic ulcer, site unspecified, unspecified as acute or chronic, without hemorrhage or perforation (principal); F10.10 Alcohol abuse, uncomplicated; F31.9 Bipolar disorder, unspecified; F41.9 Anxiety disorder, unspecified; K21.9 Gastro-esophageal reflux disease without esophagitis; F20.9 Schizophrenia, unspecified; R56.9 Unspecified convulsions; F17.200 Nicotine dependence, unspecified, uncomplicated; Y90.6 Blood alcohol level of 120-199 mg/100 ml
CPT/HCPCS: 80053; 80307; 82140; 83690; 85025; 85610; 85730; 86850; 86900; 86901; 96374; 96375; 99284; C9113; J2405; J3411; J7030